=== PATIENT | female | born 1945 | race Hispanic/Latino ===

== ENCOUNTER 2018-05-24 15:45 | Outpatient (CLI) | payer MEDICARE | END 2018-05-24 15:46 | disposition home or self-care (01) | LOC: BICMAMMO 15:45 | PROVIDERS: ATTEND Internal Medicine | DX: Z12.31 Encounter for screening mammogram for malignant neoplasm of breast (principal); R92.1 Mammographic calcification found on diagnostic imaging of breast | CPT/HCPCS: 77063; 77067 ==

== ENCOUNTER 2018-12-07 13:39 | Outpatient (CLI) | payer MEDICARE ==
--- NOTE | 2018-12-07 15:26 | ULT ---
THYROID ULTRASOUND: Date: 12/07/18 HISTORY: Thyroid nodule. COMPARISON: None available. FINDINGS: The right lobe of the thyroid gland measures 2.8 cm x 1.6 cm x 1.3 cm, with the left lobe measuring 3 .7 cm x 1.3 cm x 1.1 cm. There is a small, heterogeneous nodule within the superior pole of the right lobe of the thyroid gland measuring 0.5 cm, with a few additional much smaller tiny hypoechoic nodul es also seen in the right lobe of the thyroid gland. There is a single, slightly heterogeneous, hypoe choic nodule within the superior pole of the left lobe of the thyroid gland which measures 0.4 cm in maximal dimensions. IMPRESSION: Multinodular thyroid gland with tiny nodules in each lobe of the thyroid gland, largest measuring 0.5 cm in the superior pole of the right lobe of the thyroid gland. POS: DELROY
== END 2018-12-07 13:40 | disposition home or self-care (01) ==
LOC: BICULT 13:39
PROVIDERS: ATTEND Internal Medicine Cardiovascular Disease
DX: E04.1 Nontoxic single thyroid nodule (principal); E04.2 Nontoxic multinodular goiter
CPT/HCPCS: 76536

== ENCOUNTER 2019-06-05 11:38 | Outpatient (CLI) | payer MEDICARE ==
--- NOTE | 2019-06-05 13:50 | MMO ---
Bilateral MAMMO Bilat Screen DDI+RICHARD. CLINICAL HISTORY: Patient is 73 years old and is seen for screening. The patient has no family history of breast cancer. The patient has no personal history of cancer. VIEWS: The views performed were: bilateral craniocaudal with tomosynthesis and bilateral mediolateral oblique with tomosynthesis. FILMS COMPARED: The present examination has been compared to prior imaging studies performed at [facility] on 03/23/2015, 03/29/2016, 05/16/2017 and 05/24/2018. MAMMOGRAM FINDINGS: The breasts are heterogeneously dense, which could obscure a lesion on mammography. There is an asymmetry seen in the CC view only seen in the outer region of the right breast. In the left breast, there are no suspicious masses, calcifications or areas of architectural distortion. IMPRESSION: ASYMMETRY IN THE RIGHT BREAST REQUIRES ADDITIONAL EVALUATION. RECOMMEND DIAGNOSTIC MAMMOGRAM. ULTRASOUND MAY ALSO PROVE USEFUL AT RECALL. THE RESULTS OF THIS EXAM WERE SENT TO THE PATIENT. ACR BI-RADS Category 0 - Incomplete: Need additional imaging evaluation. [facility] will notify the patient of the need for additional imaging services. MAMMOGRAPHY NOTE: 1. A negative mammogram report should not delay a biopsy if a dominant of clinically suspicious mass is present. 2. Approximately 10% to 15% of breast cancers are not detected by mammography. 3. Adenosis and dense breasts may obscure an underlying neoplasm. Reported by: ELICIA BAIRES MD Electonically Signed: [id number]
== END 2019-06-05 11:39 | disposition home or self-care (01) ==
LOC: BICMAMMO 11:38
PROVIDERS: ATTEND Internal Medicine
DX: Z12.31 Encounter for screening mammogram for malignant neoplasm of breast (principal); N64.89 Other specified disorders of breast
CPT/HCPCS: 77063; 77067

== ENCOUNTER 2019-06-12 13:47 | Outpatient (CLI) | payer MEDICARE ==
--- NOTE | 2019-06-12 14:19 | MMO ---
Left Breast MAMMO Unilat Diag DDI LT+RICHARD. CLINICAL HISTORY: Patient is 73 years old and is seen for additional evaluation requested from prior study. The patient has no family history of breast cancer. The patient has no personal history of cancer. VIEWS: The views performed were: bilateral mediolateral with tomosynthesis and left craniocaudal spot compression with tomosynthesis. FILMS COMPARED: The present examination has been compared to prior imaging studies performed at [facility] on 03/29/2016, 05/16/2017, 05/24/2018 and 06/05/2019. MAMMOGRAM FINDINGS: The breast is heterogeneously dense, which could obscure a lesion on mammography. Asymmetry in the left breast compresses out. There are no suspicious masses, suspicious calcifications, or new areas of architectural distortion. IMPRESSION: THERE IS NO MAMMOGRAPHIC EVIDENCE OF MALIGNANCY. A ROUTINE FOLLOW-UP MAMMOGRAM IN 1 YEAR IS RECOMMENDED. THE RESULTS OF THIS EXAM WERE SENT TO THE PATIENT. ACR BI-RADS Category 2 - Benign finding MAMMOGRAPHY NOTE: 1. A negative mammogram report should not delay a biopsy if a dominant of clinically suspicious mass is present. 2. Approximately 10% to 15% of breast cancers are not detected by mammography. 3. Adenosis and dense breasts may obscure an underlying neoplasm. Reported by: Rosalinda COLEMAN Electonically Signed: [id number]
== END 2019-06-12 13:48 | disposition home or self-care (01) ==
LOC: BICMAMMO 13:47
PROVIDERS: ATTEND Internal Medicine
DX: R92.2 Inconclusive mammogram (principal)
CPT/HCPCS: 77065; G0279

== ENCOUNTER 2019-08-06 10:23 | Observation (INO) | payer MEDICARE ==
[2019-08-06 11:00] LABS: #Eosinphils 0.1 thou/uL (0.0-0.7); #Lymphocytes 1.8 thou/uL (1.20-3.40); #Monocytes 0.3 thou/uL (0.11-0.59); #Neutrophils 3.5 thou/uL (1.40-6.50); %Basophils 0.2 % (0.0-1.0); %Eosinophils 2.6 % (0.0-10.0); %Lymphocytes 30.6 % (21.0-51.0); %Monocytes 5.6 % (0.0-10.0); Hemoglobin 13.6 g/dL (12.0-16.0); Mean Corpuscular Hemoglobin 30.4 pg (27.0-31.0); Mean Corpuscular Volume 86.8 fL (78.0-98.0); Mean Platelet Volume 7.6 fL (7.4-10.4); Platelet Count 110 thou/uL (130-400); RBC Distribution Width 12.2 % (11.5-14.5); Red Blood Cell (RBC) Count 4.49 mill/uL (4.20-5.40); White Blood Cell (WBC) Count 5.7 thou/uL (4.8-10.8)
[2019-08-06] MEDS ORDERED: Ondansetron PF 4 MG/2 ML Vial ONE (11:07)
[2019-08-06] MEDS ORDERED: Meclizine HCl 25 MG TAB ONE (11:09)
--- NOTE | 2019-08-06 11:17 | RAD ---
Portable chest: HISTORY: Dizziness chest pain COMPARISON: none FINDINGS: Lung la are clear. Heart and mediastinum appear unremarkable. Postop sternotomy changes . Vascularity is normal. Visualized osseous structures unremarkable. IMPRESSION: No acute finding
[2019-08-06 11:19] LABS: ALT (SGPT) 16 U/L (8-55); AST (SGOT) 15 U/L (5-34); Alkaline Phosphatase 81 U/L (40-110); Anion Gap 12 mmol/L (10-20); BUN (Urea Nitrogen) 12 mg/dL (9.8-20.1); Bilirubin, Total 0.4 mg/dL (0.2-1.2); CK (CPK) 126 U/L (29-168); Calc. Creatinine Clearance 0 mL/min (70-130); Carbon Dioxide 24 mmol/L (23-31); Chloride 110 mmol/L (98-107); Estimated GFR-MDRD 55; Globulin 2.7 g/dL (2.4-3.5); Glucose 153 mg/dL (83-110); Lipase 15 U/L (8-78); Potassium 3.6 mmol/L (3.5-5.1); Protein, Total 6.7 g/dL (6.0-8.3); Sodium 142 mmol/L (136-145)
[2019-08-06] MEDS ORDERED: Ondansetron ODT 4 MG TAB ONE (11:28)
--- NOTE | 2019-08-06 11:55 | CT ---
CT Brain WO Con: 08/06/2019 11:03 AM CLINICAL HISTORY: Chronic dizziness. COMPARISON: 01/27/2017 FINDINGS: Hemorrhage: None. Ventricular system: Normal in size and morphology for the patient's age. Cerebral parenchyma: Microvascular ischemic disease Midline shift: None. Mass: No mass effect. Calvarium: Normal. Visualized Paranasal sinuses: Clear. IMPRESSION: No acute intracranial abnormalities.
--- NOTE | 2019-08-06 12:40 | PDOC.FPRHP ---
- History of Present Illness Chief Complaint: Dizziness History of Present Illness: Ms Sykes is a 74yo female with pmh of CAD S/p X3 vessel CABG, DM II, HLD, HTN , presents from Dr Rice's office due to dizziness that prevents her from walking. Reports lightheadedness. Reports right sided chest pain with right hand numbness off and on. Has had these symptoms for 6 months but today dizziness is worse. Has been getting home health PT/OT for strengthening. Reports the reason she doesn't walk is because she is afraid she will fall. C/o headaches in the frontal region almost daily. + night sweats. + ringing in L-ear. Pt had out patient workup of Carotid Doppler US, which was negative for significant stenosis. ED Course: Pt given meclizine, symptoms improved slightly. CT head negative. - Allergies/Adverse Reactions Allergies Allergy/AdvReac Type Severity Reaction Status Date / Time No Known Allergies Allergy Verified 08/06/19 15:21 - Home Medications Medication Instructions Recorded Confirmed Type Sertraline HCl 100 mg PO DAILY 04/07/14 08/06/19 History Aspirin Chewable [Aspirin Chewable 81 mg PO DAILY #0 tab 08/20/15 08/06/19 Rx Tablet] Aspirin/Acetaminophen/Caffeine 2 tablet PO Q6HR PRN 08/24/16 08/06/19 History [Excedrin Extra Strength Caplet] Metoprolol Tartrate 50 mg PO BID 08/24/16 08/06/19 History Simvastatin [Zocor] 40 mg PO QPM tab 01/29/17 08/06/19 Rx Meloxicam 15 mg PO DAILY 08/06/19 08/06/19 History Omeprazole 40 mg PO DAILY 08/06/19 08/06/19 History glipiZIDE [Glipizide] 5 mg PO BID 08/06/19 08/06/19 History - History PMHx: HTN, DM II, HLD, CAD PSHx: CABG x3v, knee replacement, cholecystectomy, hysterectomy FHx: Unremarkable Social: Denies alcohol, tobacco and drug use. - Review of Systems General: denies: fever/chills, fatigue Eyes: denies: vision changes ENT: denies: nasal congestion, rhinorrhea Respiratory: denies: cough, shortness of breath Cardiovascular: reports: chest pain. denies: palpitation, edema Gastrointestinal: denies: nausea, vomiting Genitourinary: denies: dysuria, other (hematuria) Skin: denies: rashes, lesions Musculoskeletal: denies: pain, swelling Neurological: reports: numbness, weakness - Vital signs BP: 180/132 HR: 53 RR: 21 Tmax: 99.9 Pox: 99% on Ra Wt: 74.12 - Physical Exam Constitutional: NAD, awake, alert and oriented, well developed HEENT: normocephalic and atraumatic, PERRLA, EOMI, conjunctiva clear, no scleral icterus, grossly normal vision, TM's clear and intact (R TM erythematous , no effusion.), grossly normal hearing, MMM Neck: supple, FROM, trachea midline, no LAD Chest: no-tender to palpation, no lesions Heart: RRR, pulses present, no edema -Heart: 2/6 systolic murmur Lungs: CTAB, no respiratory distress, good air movement, no rales/rhonchi, no wheezing, no retractions Abdomen: soft, non-tender, bowel sounds present, no masses/distention Musculoskeletal: normal structure, normal tone Neurological: no focal deficit, CN II-XII intact, normal sensation -Neurological: [id number] intact no dysdiadacokinesia Anne-hallpike: horizontal nystagmus present when tested on right. Skin: no rash/lesions, good turgor, capillary refill <2 seconds Heme/Lymphatic: no unusual bruising or bleeding, no purpura, no petechia Psychiatric: normal mood and affect, good judgment and insight, intact recent and remote memory FMR H&P: Results - Labs Result Diagrams: 08/06/19 10:43 08/06/19 10:43 Lab results: WBC 5.7 thou/uL (4.8-10.8) 08/06/19 10:43 Hgb 13.6 g/dL (12.0-16.0) 08/06/19 10:43 Hct 38.9 % (36.0-47.0) 08/06/19 10:43 MCV 86.8 fL (78.0-98.0) 08/06/19 10:43 Plt Count 110 thou/uL (130-400) L 08/06/19 10:43 Neutrophils % 61.0 % (42.0-75.0) 08/06/19 10:43 Sodium 142 mmol/L (136-145) 08/06/19 10:43 Potassium 3.6 mmol/L (3.5-5.1) 08/06/19 10:43 Chloride 110 mmol/L (98-107) H 08/06/19 10:43 Carbon Dioxide 24 mmol/L (23-31) 08/06/19 10:43 BUN 12 mg/dL (9.8-20.1) 08/06/19 10:43 Creatinine 0.98 mg/dL (0.6-1.1) 08/06/19 10:43 Glucose 153 mg/dL (83-110) H 08/06/19 10:43 Calcium 9.0 mg/dL (7.8-10.44) 08/06/19 10:43 Total Bilirubin 0.4 mg/dL (0.2-1.2) 08/06/19 10:43 AST 15 U/L (5-34) 08/06/19 10:43 ALT 16 U/L (8-55) 08/06/19 10:43 Alkaline Phosphatase 81 U/L (40-110) 08/06/19 10:43 Creatine Kinase 126 U/L (29-168) 08/06/19 10:43 B-Natriuretic Peptide 141.3 pg/mL (0-100) H 08/06/19 10:43 Serum Total Protein 6.7 g/dL (6.0-8.3) 08/06/19 10:43 Albumin 4.0 g/dL (3.4-4.8) 08/06/19 10:43 Lipase 15 U/L (8-78) 08/06/19 10:43 - EKG Interpretation EKG: Bradycardia, sinus rhythm - Radiology Interpretation CT scan - head Status: report reviewed by me (no acute process.) FMR H&P: A/P - Problem List (1) CVA (cerebral vascular accident) Current Visit: Yes Status: Suspected Code(s): I63.9 - CEREBRAL INFARCTION, UNSPECIFIED (2) Vertiginous migraine Current Visit: Yes Status: Suspected Code(s): G43.109 - MIGRAINE WITH AURA, NOT INTRACTABLE, W/O STATUS MIGRAINOSUS (3) Coronary atherosclerosis Current Visit: No Status: Chronic Code(s): I25.10 - ATHSCL HEART DISEASE OF [place] CORONARY ARTERY W/O ANG PCTRS (4) Essential hypertension Current Visit: No Status: Chronic Code(s): I10 - ESSENTIAL (PRIMARY) HYPERTENSION (5) Hyperlipidemia Current Visit: No Status: Chronic Code(s): E78.5 - HYPERLIPIDEMIA, UNSPECIFIED (6) Type II diabetes mellitus Current Visit: No Status: Chronic - Plan 74 y/o f admitted to stroke obs for evaluation and treatment of her dizziness. DDx BPPV, Vertiginous Migraines, vs TIA r/o. 1. Dizziness, most likely diagnosis is Vertiginous Migraines Vs CVA - Differential dx: TIA/CVA, BPPV - HINTS suggests central lesion/insult - Ordered MRI - Restarted Depakote [address] Conroy started on prior admission, was not continued for unknown reason. - Restarted Meclizine 25 mg Q8H - Anne-Hallcarla, with positive nystagmus to the right. 2. HTN - holing metoprolol as pt is bradycardic - Hydralazine PRN for elevated BP's 3. Bradycardia - Rate in 50's - No echo since 2014. EF 55-60%. Tricuspid aortic valve. Aortic valve sclerosis. Ordered Echo. - Dr. Rice's office does not have any resent echo results 4. DM II - Pt takes Januvia and Glipizide at home - Continue Januvia, hold Glipizide due to hypoglycemia risk 5. CAD, S/P CABG X3 vessels - continue simvastatin 40 mg, ASA 81 mg daily 6. HLD - Continue simvastatin 40 mg Code Status: DNP, discussed with patient Diet: HH, CC DVT ppx: SCD's Dispo: Stable, admit to stroke obs for dizziness. FMR H&P: Upper Level - Pertinent history Ms Sykes is a 74yo female with pmh of HTN, prediabetes, HLD, CAD s/p CABG x3v presenting with dizziness. Reports dizziness over the last 6 months with sitting and movement. Worse today, was sent to ED from Dr Rice's office. She does check her BP at home and they have been stable with no hypotensive episodes per cardiology records. She was seeing her PCP over the last 6 months for these symptoms and she has underwent carotid US which was normal. In the ED she was noted to have abnormal Neuro exam- pt unable to do rapid alternating movements or heel to pascual test. There was concern for acute CVA which was why she was admitted. Head CT was normal. Imdur was stopped today by cardiology due to dizziness. Pt has hx of vertiginous migraines diagnosed on prior admission by Dr Conroy. - Pertinent findings General: NAD HEENT: Normal conjunctiva, no facial droop CV: RRR, no murmurs Respiratory: CTA b/l Abdomen: Soft, nontender Neuro: CN II-XII intact, no dysdiadochokinesis, normal heel to pascual, NIH 0. Normal sensation to light touch on all 4 extremities. bidirectional horizontal nystagmus. HINTS exam central. Normal test of skew. - Plan Date/Time: 08/06/19 1240 Acute CVA vs BPPH vs Vertiginous migraine. Concern for acute CVA due to neuro deficits on initial exam in ED however no dysdiadochokinesis and normal heel to pascual test on our repeat exam. HINTS exam central. CT in ED no acute findings. Was hospitalized in 2017 for similar symptoms, neurology was consulted and she was diagnosed with Vertiginous migraines. At this time she was discharged on Depakote. She is no longer taking this or topamax. Will perform [place]-Hallpike and if positive preform Danica maneuver for tx. Continue Meclizine. Will admit to stroke, obtain MRI, echo and monitor with neurochecks. Will also start Depakote. Atypical chest pain - Not currently in pain. Initial trop negative and EKG in clinic today and repeat in ED no ischemic changes. Is scheduled for a cardiac PET scan outpt. Recommend outpt workup with Dr Rice. HTN - Hydralazine PRN for SBP >180 - Will start Amlodipine 5mg Hx of CVA 30yrs ago with no residual deficits - Continue ASA and statin DM - Continue Januvia. ACHS accuchecks and mild SSI. For other chronic medical problems please see design engineering intern note. I, Alba Alonso, have evaluated this patient and agree with findings/plan as outlined by design engineering intern resident. Pertinent changes/additions are listed here. Addendum - Attending - Attending Attestation Date/Time: 08/07/19 1118 I personally evaluated the patient and discussed the management with the team on day of admission. I agree with the History, Examination, Assessment and Plan documented above with any addition or exceptions noted below. Persistent vestibular symptoms and intermittent headache, none currently. Of HINTS exam HI/N suggestive of central. Will proceed with MRI to eval.
[2019-08-06] MEDS ORDERED: Gadobenate Dimeglumine 529 MG/1 ML (20ML VIAL) ONE (12:52)
[2019-08-06] MEDS ORDERED: Meclizine HCl 25 MG TAB PO PRN (13:23)
[2019-08-06] MEDS ORDERED: Aspirin Chewable 81 MG TAB ONE (13:55)
[2019-08-06] MEDS ORDERED: Acetaminophen 325 MG TAB PO PRN (13:59)
[2019-08-06] MEDS ORDERED: Ondansetron ODT 4 MG TAB PO PRN (13:59)
[2019-08-06] MEDS ORDERED: hydrALAZINE 20 MG/ML VIAL SLOW IVP PRN (14:52)
[2019-08-06 15:34] VITALS: BMI 31.8
[2019-08-06] MEDS ORDERED: Amlodipine 5 MG TAB PO SCH (15:45)
[2019-08-06] MEDS ORDERED: Lorazepam 2 MG/ML VIAL SLOW IVP SCH (16:15)
--- NOTE | 2019-08-06 18:45 | MRI ---
MRI brain with and without contrast: DATE: 08/06/2019 HISTORY: 74-year-old female with dizziness. TIA. TECHNIQUE: Multiplanar, multisequence MRI of the brain obtained pre and post IV injection of gadolinium based co ntrast agent. FINDINGS: There is no obstructive hydrocephalus. There is no midline shift or any other evidence of mass effect . There is no extra-axial fluid collection. There are mild-moderate chronic ischemic white matter changes due to microvascular atherosclerosis. There is otherwise no major intra-axial signal abnormal ity, abnormal enhancement, mass, recent hemorrhage, or restricted diffusion. Tiny focus of CSF signal a few millimeters in size at the left thalamus could either represent a minimally dilated Virc how-Charles perivascular space or a tiny old lacunar infarction. IMPRESSION: 1) mild-moderate chronic ischemic white matter changes. 2) otherwise negative
[2019-08-06] MEDS ORDERED: Atorvastatin Calcium 20 MG TAB PO SCH ×2 (21:00)
[2019-08-06] MEDS ORDERED: Topiramate 25 MG TAB PO SCH (21:00)
[2019-08-06] MEDS: Divalproex Sodium 250 MG (DR) TAB PO SCH (21:44)
--- NOTE | 2019-08-07 06:03 | PDOC.FM ---
- Subjective Subjective: Denies CP, SOB. C/o dizziness, that is better than yesterday. Tele monitoring overnight: 60 NSR - Objective MAR Reviewed: Yes Vital Signs & Weight: Vital Signs (12 hours) Temp Pulse Resp BP Pulse Ox 08/07/19 03:37 97.6 F 63 16 157/81 H 95 08/06/19 23:49 97.7 F 58 L 16 150/80 H 95 08/06/19 20:50 97.7 F 58 L 16 175/85 H 95 Weight Weight 74.117 kg I&O: 08/05/19 08/06/19 08/07/19 06:59 06:59 06:59 Intake Total 240 Balance 240 Result Diagrams: 08/06/19 10:43 08/06/19 10:43 Phys Exam - Physical Examination Constitutional: NAD HEENT: PERRLA, moist MMs, sclera anicteric Horizontal nystagmus with eyes glancing to right. Neck: no nodes, supple, full ROM Respiratory: no wheezing, no rales, no rhonchi, clear to auscultation bilateral Cardiovascular: RRR, no rub Systolic murmur Gastrointestinal: soft, non-tender, no distention, positive bowel sounds Musculoskeletal: no edema, pulses present HINTS: eyes stay centrally fixed, nystagmus present. Centrally suggestive. Psychiatric: normal affect, A&O x 3 Skin: no rash, normal turgor, cap refill <2 seconds Dx/Plan (1) CVA (cerebral vascular accident) Code(s): I63.9 - CEREBRAL INFARCTION, UNSPECIFIED Status: Suspected (2) Vertiginous migraine Code(s): G43.109 - MIGRAINE WITH AURA, NOT INTRACTABLE, W/O STATUS MIGRAINOSUS Status: Suspected (3) Coronary atherosclerosis Code(s): I25.10 - ATHSCL HEART DISEASE OF [place] CORONARY ARTERY W/O ANG PCTRS Status: Chronic (4) Essential hypertension Code(s): I10 - ESSENTIAL (PRIMARY) HYPERTENSION Status: Chronic (5) Hyperlipidemia Code(s): E78.5 - HYPERLIPIDEMIA, UNSPECIFIED Status: Chronic (6) Type II diabetes mellitus Status: Chronic - Plan Plan: 74 y/o f admitted to stroke obs for evaluation and treatment of her dizziness. DDx BPPV, Vertiginous Migraines, vs TIA r/o. 1. Dizziness, most likely diagnosis is Vertiginous Migraines Vs CVA - Differential dx: TIA/CVA, BPPV - HINTS exam suggests central lesion/insult - MRI: mild-moderate ischemic white matter changes 2/2 microvascular atherosclerosis. Possible L-thalamic old lacunar infarct vs. Virchow-messi perivascular space. Otherwise negative. - Restarted Depakote [address] Conroy started on prior admission for vertiginous migraines, was not continued for unknown reason. - Restarted Meclizine 25 mg Q8H - Joss[place], with positive nystagmus to the right. - Brain CT negative. 2. HTN - holing metoprolol as pt is bradycardic - Hydralazine PRN for elevated BP's - Added Lisinopril 10 mg daily to BP regimen. 3. Bradycardia - Rate in 50's - No echo since 2014. EF 55-60%. Tricuspid aortic valve. Aortic valve sclerosis. Ordered Echo. - Dr. Rice's office does not have any resent echo results 4. DM II - Pt takes Januvia and Glipizide at home - Continue Januvia, hold Glipizide due to hypoglycemia risk - Started Mild SSI - Accuchecks. 5. CAD, S/P CABG X3 vessels - continue simvastatin 40 mg, ASA 81 mg daily - Echo pending 6. HLD - Continue simvastatin 40 mg Code Status: DNP, discussed with patient Diet: HH, CC DVT ppx: SCD's Dispo: Stable, admit to stroke obs for dizziness. Addendum - Attending - Attending Attestation Date/Time: 08/07/19 1041 I personally evaluated the patient and discussed the management with Dr. Young. I agree with the History, Examination, Assessment and Plan documented above with any addition or exceptions noted below. The patient has noticed some improvement in dizziness. Would benefit from therapy. MRI negative for acute stroke.
[2019-08-07] MEDS ORDERED: HumaLOG 300 UNITS/3 ML VIAL SC PRN (08:04)
[2019-08-07] MEDS ORDERED: Dextrose 50% Abboject 50 ML SYRINGE SLOW IVP PRN (08:04)
[2019-08-07] MEDS ORDERED: Dextrose 5% in Water 1,000 ML IV PRN (08:04)
[2019-08-07] MEDS: Divalproex Sodium 250 MG (DR) TAB PO SCH (08:58)
[2019-08-07] MEDS ORDERED: Aspirin Chewable 81 MG TAB PO SCH (09:00)
[2019-08-07] MEDS ORDERED: FLU VACC TS2019-20(65YR UP)/PF 180 MCG/0.5 ML SYRINGE IM ONE (09:00)
[2019-08-07] MEDS ORDERED: Lisinopril 10 MG TAB PO SCH (09:00)
[2019-08-07] MEDS ORDERED: Meloxicam 15 MG TAB PO SCH (09:00)
[2019-08-07] MEDS ORDERED: Amlodipine 5 MG TAB PO SCH (09:00)
[2019-08-07 15:52] VITALS: BP 172/65; TEMP 98
--- NOTE | 2019-08-07 23:57 | DIS ---
DATE OF ADMISSION: 08/06/2019 DATE OF DISCHARGE: 08/07/2019 RESIDENT: Chanel Young DO ADMITTING ATTENDING: Dr. Ching. DISCHARGE ATTENDING: Dr. Agustin CONSULTS: Case Management, OT, PT, speech eval. PROCEDURES PERFORMED: Brain MRI showed no acute process, [id number] chronic ischemic white matter changes most likely secondary to microvascular atherosclerosis. PRIMARY DIAGNOSES: 1. Dizziness, most likely caused by vertiginous migraine. 2. Coronary atherosclerosis status post x3 vessel coronary artery bypass grafting. 3. Hypertension. 4. Bradycardia. 5. Diabetes mellitus type 2. 6. Hyperlipidemia. DISCHARGE MEDICATIONS: 1. Acetaminophen 650 mg p.o. q.4 hours p.r.n. 2. 81 mg aspirin p.o. daily. 3. Depakote 250 mg p.o. b.i.d. 4. Lisinopril 10 mg p.o. daily. 5. Meclizine 25 mg p.o. q.8 hours. 6. Meloxicam 15 mg p.o. daily. 7. Omeprazole 40 mg p.o. daily. 8. Sertraline 100 mg p.o. daily. 9. Simvastatin 40 mg p.o. at bedtime. 10. Glipizide 5 mg p.o. b.i.d. 11. Hydralazine 10 mg slow IVP q.4 hours as needed for hypertension. DISCONTINUED MEDICATIONS: Metoprolol 50 mg p.o. b.i.d., because patient was having bradycardia while in the hospital. If her bradycardia resolves, consider restarting metoprolol or other beta-israel for cardiac morbidity and mortality benefit. HISTORY OF PRESENT ILLNESS/HOSPITAL COURSE: Ms. ySkes is a 74-year-old female, who came into the emergency department after being seen at Dr. Rice's office on 08/06/2019. She was very dizzy in office and unable to stand because of her dizziness. Once evaluated in the emergency department, we received the history that this has been going on anywhere from 4 to 6 months. The patient did think that she was acutely worse than what has been going on in the past several months. The patient had a negative CT brain in the emergency department with relatively normal laboratory findings. The patient was admitted to rule out acute CVA versus TIA. Brain MRI showed chronic white matter ischemic changes, most likely secondary to her atherosclerosis but no acute infarct. The patient's dizziness could be due to a couple of factors, one being vertiginous migraines, the other BPPV. I recommend inpatient rehab for this patient as she is unstable to go home currently. She is an excellent candidate for rehab as she wants to show improvement in her overall strength and stability before going home. She will also be a good candidate for Danica maneuver to be performed multiple times with PT/OT with a high differential being BPPV. The addition of Depakote 250 mg p.o. b.i.d. was restarted to the patient's regimen. On a prior admission, Dr. West had started this for vertiginous migraines, but the patient did not know why she had stopped taking medication previously. She agreed to the plan to restart this medication as well as meclizine, stated that this helps with her dizziness. DISPOSITION: The patient is stable upon discharge to inpatient rehab. DISCHARGE INSTRUCTIONS: 1. Location: [facility] inpatient re[facility]. 2. Diet: Heart healthy and consistent carb. 3. Activity: As tolerated per PT/OT. 4. Followup: Follow up with primary care in 1 week after discharge from inpatient rehab to monitor new addition of lisinopril, blood pressure medication, and whether or not to restart metoprolol if her heart rate tolerates. Job ID: [id number] MTDD
--- NOTE | 2019-08-10 14:42 | EKG ---
Test Reason : Blood Pressure : / mmHG Vent. Rate : 056 BPM Atrial Rate : 056 BPM P-R Int : 164 ms QRS Dur : 090 ms QT Int : 432 ms P-R-T Axes : 012 -07 032 degrees QTc Int : 416 ms Sinus bradycardia Moderate voltage criteria for LVH, may be normal variant Borderline ECG Confirmed by ALEXEI FLORES DO ([id number]), slot editor DIVINE MILLER ([id number]) on 08/10/2019 2:42:06 PM Referred By: Confirmed By:ALEXEI FLORES DO
== END 2019-08-07 19:35 ==
LOC: ERS 10:23 → 2SE 12:41
PROVIDERS: ADMIT Family Medicine; ATTEND Family Medicine
DX: R42 Dizziness and giddiness (principal); I25.10 Atherosclerotic heart disease of native coronary artery without angina pectoris; I10 Essential (primary) hypertension; E11.9 Type 2 diabetes mellitus without complications; E78.5 Hyperlipidemia, unspecified; R00.0 Tachycardia, unspecified; R07.89 Other chest pain; Z95.1 Presence of aortocoronary bypass graft; Z79.82 Long term (current) use of aspirin; Z79.84 Long term (current) use of oral hypoglycemic drugs; Z79.899 Other long term (current) drug therapy
CPT/HCPCS: 70450; 70553; 71045; 80053; 82550; 82962; 83690; 83880; 84484; 85025; 93005; 96374; 97139 ×3; 99285; G0378 ×3; 36415; 36416; A9577; J2060; J2405; J8597; Q0162

== ENCOUNTER 2019-12-17 09:02 | Outpatient (CLI) | payer MEDICARE ==
--- NOTE | 2019-12-17 14:13 | NM ---
WHOLE BODY BONE SCAN WITH TRIPLE PHASE IMAGING THROUGH THE KNEES: HISTORY: Right knee replacement 2014. Pain in the right knee RADIOPHARMACEUTICAL: 32.5 mCi technetium 99m-MDP injected intravenously COMPARISON: None CORRELATION: None FINDINGS: No increased flow or blood pooling is seen in either knee. Delayed images demonstrate mild tracer upt neno in the right knee. There is scattered degenerative activity in the appendicular skeleton. No other abnormal areas of tracer localization are seen in the skeleton to suggest metastatic disease . Tracer excretion through the kidneys is within normal limits. IMPRESSION: No scintigraphic evidence of right knee osteomyelitis or prosthetic loosening.
== END 2019-12-17 09:03 | disposition home or self-care (01) ==
LOC: NM 09:02
PROVIDERS: ATTEND Orthopaedic Surgery
DX: Z47.1 Aftercare following joint replacement surgery (principal); M25.561 Pain in right knee; M17.9 Osteoarthritis of knee, unspecified; Z96.651 Presence of right artificial knee joint
CPT/HCPCS: 78315; A9503

== ENCOUNTER 2020-04-06 15:51 | Inpatient (IN) | payer MEDICARE ==
[~2020-04-06 15:51] MED LIST: Iopamidol-370 76% 500 ML 1 ML ONE
--- NOTE | 2020-04-06 16:05 | CT ---
CT head noncontrast HISTORY: Left-sided weakness and facial droop. COMPARISON: 08/06/2019. FINDINGS: There is no evidence of acute intracranial hemorrhage or infarct. Mild diffuse cortical atr ophy and chronic ischemic small vessel disease. There is no mass effect or shift of midline structures. Calcifications present within the arterial st ructures of the brain base. IMPRESSION : No acute intracranial abnormalities are demonstrated. Atherosclerosis. Findings were called to Dr. Ahuja in the emergency department at 1600 hours. Code CR.
[2020-04-06] MEDS ORDERED: methylPREDNISolone Sod Succ/PF 125 MG/2 ML VIAL ONE (16:09)
[2020-04-06] MEDS ORDERED: diphenhydrAMINE 50 MG/ML VIAL ONE (16:09)
[2020-04-06] MEDS ORDERED: niCARdipine 20MG In NaCl 20 MG/200 ML BAG ONE (16:14)
--- NOTE | 2020-04-06 16:24 | CT ---
CT arteriogram neck with IV contrast and 3-D imaging CT arteriogram head with IV contrast and 3-D imaging HISTORY: Left-sided weakness. Facial droop. FINDINGS: There is normal branching great vessels at the aortic arch with arterial calcification appa rent. Good flow into each vertebral and carotid system. At the right carotid bifurcation, there is calcification and prominent plaque. Motion artifact at the level of the proximal ICA with very high-grade stenosis suspected (likely greater than 90%). Good flow into the remaining patent ICA. On the left, narrowing of the proximal internal carotid artery is suspected. It is partially obscured by motion artifact and contrast in the adjacent jugular vein. [place] of [place] is intact. Calcification at the carotid siphons. Good flow into each cerebral and ce rebellar system. No focal filling defect evident. No enhancing brain lesions. IMPRESSION : No acute vascular abnormalities are demonstrated. Atherosclerosis. Probable high-grade stenosis at each cervical internal carotid artery. There is extensive motion gonsalo fact on this exam. Please consider conventional arteriography for better detail. Findings were called to Dr. Ahuja in the emergency department at 1614 hours. Code CR.
[2020-04-06 16:47] LABS: #Eosinphils 0.1 thou/uL (0.0-0.7); #Lymphocytes 2.6 thou/uL (1.20-3.40); #Monocytes 0.4 thou/uL (0.11-0.59); %Basophils 0.6 % (0.0-1.0); %Eosinophils 1.6 % (0.0-10.0); %Lymphocytes 36.1 % (21.0-51.0); %Monocytes 5.5 % (0.0-10.0); %Neutrophils 56.2 % (42.0-75.0); Mean Corpuscular HGB CONC 34.7 g/dL (32.0-36.0); Mean Corpuscular Hemoglobin 30.7 pg (27.0-31.0); Mean Corpuscular Volume 88.4 fL (78.0-98.0); Mean Platelet Volume 8.4 fL (7.4-10.4); Platelet Count 122 thou/uL (130-400); RBC Distribution Width 12.7 % (11.5-14.5); Red Blood Cell (RBC) Count 4.56 mill/uL (4.20-5.40); White Blood Cell (WBC) Count 7.1 thou/uL (4.8-10.8)
[2020-04-06 16:55] LABS: PTT 38.7 sec (22.9-36.1); Prothrombin Time 13.3 sec (12.0-14.7)
--- NOTE | 2020-04-06 17:06 | RAD ---
PORTABLE CHEST ONE VIEW: Date: 04-06-2020 Time: 4:08 p.m. History: CVA Comparison: 11-25-18 FINDINGS: There is continued elevation of the right hemidiaphragm. Changes of median sternotomy again seen. The heart size is normal. The aorta is tortuous. The lungs are well expanded without focal areas of cons olidation, pneumothoraces, hazel pulmonary edema or pleural effusions. IMPRESSION: No radiographic evidence of acute cardiopulmonary process. POS: [facility]
[2020-04-06 17:07] LABS: ALT (SGPT) 11 U/L (8-55); AST (SGOT) 15 U/L (5-34); Albumin 3.8 g/dL (3.4-4.8); Alkaline Phosphatase 77 U/L (40-110); Anion Gap 11 mmol/L (10-20); BUN (Urea Nitrogen) 20 mg/dL (9.8-20.1); Bilirubin, Total 0.4 mg/dL (0.2-1.2); Calc. Creatinine Clearance 0 mL/min (70-130); Calcium 9.1 mg/dL (7.8-10.44); Carbon Dioxide 22 mmol/L (23-31); Chloride 107 mmol/L (98-107); Estimated GFR-MDRD 53; Globulin 3.1 g/dL (2.4-3.5); Glucose 119 mg/dL (83-110); Lipase 27 U/L (8-78); Magnesium 1.9 mg/dL (1.6-2.6); Potassium 3.4 mmol/L (3.5-5.1); Protein, Total 6.9 g/dL (6.0-8.3); Sodium 137 mmol/L (136-145)
[2020-04-06 17:25] LABS: Bilirubin Negative (Negative); Blood, Urine Negative (Negative); Clarity Clear (Clear); Glucose, Urine (Dipstick) Normal (Negative); Leukocyte Negative Leu/uL (Negative); Nitrite Negative (Negative); Protein, Urine (Dipstick) Negative (Neg-Trace); Urobilinogen Normal mg/dL (Less than 2)
[2020-04-06] MEDS ORDERED: Bisacodyl 5 MG TAB PO PRN (18:18)
[2020-04-06] MEDS ORDERED: Acetaminophen 650 MG Suppository PR PRN (18:18)
[2020-04-06] MEDS ORDERED: niCARdipine 25 MG in Sodium Chloride 0.9% 250 ML 240 ML IVPB PRN (18:18)
[2020-04-06] MEDS ORDERED: Ondansetron PF 4 MG/2 ML Vial IVP PRN (18:18)
[2020-04-06 18:28] VITALS: BMI 30.9
[2020-04-06] MEDS ORDERED: Dextrose 50% Abboject 50 ML SYRINGE SLOW IVP PRN (18:35)
[2020-04-06] MEDS ORDERED: HumaLOG 300 UNITS/3 ML VIAL SC PRN (18:35)
[2020-04-06] MEDS ORDERED: Dextrose 5% in Water 1,000 ML IV PRN (18:35)
[2020-04-06] MEDS ORDERED: Potassium Chloride 10 MEQ/100 ML PREMIX BAG IVPB SCH (19:00)
--- NOTE | 2020-04-06 19:04 | HP ---
PRIMARY CARE PROVIDER: Dr. Ted Amos. CHIEF COMPLAINT: Weakness. HISTORY OF PRESENT ILLNESS: Ms. Sykes is a pleasant 74-year-old lady, who was seen at [facility] on April 06, 2020. She reported that today afternoon she developed left upper extremity and left lower extremity weakness. She reports prior stroke about 10 years ago. She denies any slurred speech. She denies any sensory symptoms. She denies any headache. She denies any nausea or vomiting. She denies any visual symptoms. She denies any recent trauma. She told the emergency room physician that she had a history of a brain mass in the past, but her MRI was normal in 2014. She presented to the emergency room with above symptoms. She was diagnosed with ischemic CVA and was administered tPA. Hospitalist Service has been consulted for admission to the critical care unit. REVIEW OF SYSTEMS: All systems were reviewed and found to be negative except for the pertinent positives mentioned above. PAST MEDICAL HISTORY: Gastroesophageal reflux disease, dyslipidemia, migraine, hypertension, ischemic cerebrovascular accident. SURGICAL HISTORY: Cholecystectomy, cataract surgery, coronary artery bypass graft surgery x2, hysterectomy. PSYCHIATRIC HISTORY: Anxiety and depression. SOCIAL HISTORY: The patient lives at home alone. She denies tobacco use, alcohol use, or recreational drug use. CODE STATUS: I discussed her code status. She is full code. FAMILY HISTORY: She denies any family history of premature coronary artery disease. ALLERGIES: NO KNOWN DRUG ALLERGIES. CURRENT MEDICATIONS: 1. Trazodone 50 mg at bedtime. 2. Lisinopril 20 mg two times a day. 3. Simvastatin 40 mg daily. 4. Aspirin 81 mg daily. 5. Glipizide 5 mg two times a day. 6. Meloxicam 15 mg daily. 7. Sertraline 100 mg daily. 8. Metoprolol tartrate 50 mg two times a day. 9. Januvia 50 mg daily. 10. Omeprazole 20 mg daily. 11. Tradjenta 5 mg daily. 12. Vitamin D 1000 units daily. 13. Imodium p.r.n. PHYSICAL EXAMINATION: GENERAL: Ms. Sykes is awake and alert, not in acute distress. VITAL SIGNS: Blood pressure is 166/77, pulse 78, respiratory rate 18, and oxygen saturation 98% on room air. She is afebrile. EYES: No scleral icterus, no conjunctival pallor. ENT: Moist mucosal membranes. No oropharyngeal erythema or exudates. NECK: Supple, nontender, trachea is midline. RESPIRATORY: Accessory muscles of breathing are not active. Chest wall movements are symmetric bilaterally. Lungs are clear to auscultation without wheeze, rhonchi, or crepitations. CARDIOVASCULAR: S1 and S2 are heard, regular. Peripheral pulses palpable. ABDOMEN: Soft, nontender, bowel sounds are heard. NEUROLOGIC: She has left facial droop. Power is 3+/5 in the left upper and lower extremities, 5/5 on the right side. Deep tendon reflexes are 2+, plantars downgoing bilaterally. MUSCULOSKELETAL: Power in the 4 extremities as described above. SKIN: No rashes. LYMPHATIC: No cervical lymphadenopathy. PSYCHIATRIC: Normal mood, normal affect, the patient is oriented to person, place, and time. LABORATORY DATA: Ms. Sykes's labs and investigations were reviewed. I reviewed her chest x-ray, which does not show any pulmonary infiltrates. I also reviewed her electrocardiogram, which shows normal sinus rhythm, no ST changes to suggest an acute coronary syndrome. She had noncontrast CT scan of the brain, which did not show any acute intracranial abnormality. CT angiogram of [place] of [place] and neck did not show any acute vascular abnormalities. She has an unremarkable CBC, INR 1.0, normal sodium, potassium decreased at 3.4, normal creatinine, normal LFTs, normal lipase, normal troponin-I, and normal urinalysis. ASSESSMENT AND PLAN: Ms. Sykes is a pleasant 74-year-old lady, who was seen at [facility] on April 06, 2020. Her problem list includes: 1. Acute ischemic cerebrovascular accident: Ms. Sykes is presenting with acute ischemic cerebrovascular accident. She has received tPA. She will be admitted to the Critical Care Unit for further management. I will continue her on aspirin. Neurology Service will be consulted for opinion and help with management. She will be on IV hydralazine p.r.n. and Cardene drip. I will obtain repeat CT scan of the brain and MRI tomorrow. 2D echocardiogram will also be ordered. 2. Diabetes mellitus type 2: I will start her on Accu-Cheks and insulin sliding scale. 3. Hypertension: For now, I will continue her on IV hydralazine and Cardene drip. 4. Dyslipidemia: She can be started on statin when she is able to take oral medications. 5. Hypokalemia: We will replace potassium. 6. Gastroesophageal reflux disease: IV pantoprazole for now, transition to oral medications when she is able to take oral medications. Many thanks for allowing me to participate in your patient's care. Please feel free to contact me with any questions or concerns. LEVEL OF RISK: High. LEVEL OF COMPLEXITY: High. Job ID: [id number]
[2020-04-06] MEDS: Acetaminophen 325 MG TAB PO PRN (20:03)
[2020-04-06] MEDS: hydrALAZINE 20 MG/ML VIAL SLOW IVP PRN (20:03)
[2020-04-06] MEDS: Communication Order-Pharmacy FS SCH (21:28)
[2020-04-07] MEDS: hydrALAZINE 20 MG/ML VIAL SLOW IVP PRN ×3 (08:21→23:40)
[2020-04-07] MEDS: Pantoprazole 40 MG VIAL IVP SCH (08:28)
[2020-04-07] MEDS ORDERED: Prevnar 13-Val Conj/PF 0.5 ML SYRINGE IM ONE (09:00)
[2020-04-07] MEDS: Labetalol HCl 100 MG/20 ML VIAL SLOW IVP PRN ×3 (13:26→23:02)
[2020-04-07] MEDS: Communication Order-Pharmacy FS SCH (13:31)
--- NOTE | 2020-04-07 13:41 | CON ---
NEUROLOGY CONSULTATION DATE OF CONSULTATION: 04/07/2020 REASON FOR CONSULTATION: CVA. HISTORY OF PRESENT ILLNESS: Ms. Sykes is a 74-year-old female, who presented to the [facility] on April 06, 2020, with acute-onset left upper extremity and lower extremity weakness. Per patient, yesterday afternoon she developed left upper and lower extremity weakness. She does have history of prior stroke 10 days ago. The patient denies slurred speech, dysphagia, nausea, vomiting, dizziness, vertigo, chest pain, headache, loss of consciousness, or abnormal involuntary movements associated with the episode. She does describe persistent tingling and paresthesias in the left upper and lower extremities. The patient denies any recent illness or trauma. In the emergency room, head CT was done, which was negative for acute intracranial pathology, and she was administered tPA and transferred to CCU for further care. REVIEW OF SYSTEMS: All other systems were reviewed and were negative except for the pertinent positives and negatives mentioned in the HPI. PAST MEDICAL HISTORY: Gastroesophageal reflux disease, dyslipidemia, migraines, prior CVA, hypertension. PAST SURGICAL HISTORY: Coronary artery bypass surgeries x2, hysterectomy, cholecystectomy, cataract surgery. PSYCHIATRIC HISTORY: Anxiety and depression. SOCIAL HISTORY: The patient lives alone in home. She is independent. She denies smoking, alcohol, or illegal drug use. FAMILY HISTORY: The patient denies family history of coronary artery disease. ALLERGIES: NO KNOWN DRUG ALLERGIES. HOME MEDICATIONS: 1. Trazodone 50 mg at bedtime. 2. Simvastatin 40 mg daily. 3. Lisinopril 20 mg twice daily. 4. Glipizide 5 mg two times a day. 5. Meloxicam 15 mg daily. 6. Sertraline 100 mg daily. 7. Metoprolol tartrate 50 mg twice daily. 8. Januvia 50 mg daily. 9. Omeprazole 20 mg daily. 10. Tradjenta 5 mg daily. 11. Vitamin D 1000 units daily. 12. Imodium p.r.n. PHYSICAL EXAMINATION: VITAL SIGNS: Blood pressure 160/70, pulse 80, respiratory rate 18. GENERAL: Awake and alert female, in no acute distress. CVS: Regular rate and rhythm. CHEST: Clear. ABDOMEN: Soft. NEUROLOGIC: Mental status, the patient is alert and oriented to person, place, and time. Speech is clear. Cranial nerves 2 through 12 are intact except 7, left facial droop. Strength 5/5 in the right upper and lower extremities, 3+/5 in the left upper and lower extremities. Sensory, decreased sensation to all sensory modalities in the left upper and lower extremities, intact on the right upper and lower extremities. Reflexes symmetric bilaterally. Cerebellar; unable to perform on the left secondary to weakness, intact on the right. Gait deferred due to the patient's safety reasons. DATA REVIEWED: I reviewed the chest x-ray, which did not reveal any pulmonary infiltrates. EKG showed normal sinus rhythm. Noncontrast head CT reviewed, which did not reveal any acute intracranial pathology. CT angiogram of the [place] of [place] and neck did not show any acute vascular abnormalities. Labs were essentially unremarkable except for hypokalemia of 3.4. ASSESSMENT AND PLAN: Ms. Sykes is a 74-year-old female, who was seen at the [facility] for acute-onset left upper extremity weakness and paresthesias , status post tPA, doing clinically well. She does have risk factors of a stroke. Neuro checks every 2 hours. Consider stat noncontrast head CT if the condition worsens. Repeat head CT in 24 hours post tPA. Recommend MRI of the brain to rule out acute intracranial process. Restart aspirin if head CT post 24 hours tPA is negative for bleed. N.p.o. until cleared by Speech. Check lipid profile, TSH, and hemoglobin A1c. Strict control of blood glucose. Permissive blood pressure control at this time. Recommend starting high-intensity statins once the patient is cleared by Speech. Correct metabolic abnormalities. 2D echo to rule out cardioembolic source. Telemetry to rule out arrhythmias. Continue home medications. Continue medical management per Primary Team. We will continue to follow. Thank you for the consult. Job ID: [id number] [facility]
--- NOTE | 2020-04-07 15:23 | PDOC.HOSPP ---
- Subjective Encounter Date: 04/07/20 Encounter Time: 09:00 Subjective: Pt seen for followup re: ischemic CVA. c/o L weakness, but improving. - Objective Vital Signs & Weight: Vital Signs (12 hours) Temp Pulse BP Pulse Ox 04/07/20 13:26 75 185/84 H 04/07/20 11:00 97.9 F 04/07/20 08:21 75 185/84 H 04/07/20 07:57 97 04/07/20 07:28 97 04/07/20 07:00 97.7 F 04/07/20 04:00 97.6 F Weight Admit Weight 158 lb 4.8 oz Weight 158 lb 4.8 oz Most Recent Monitor Data Heart Rate from ECG 75 NIBP 186/80 NIBP BP-Mean 115 Respiration from ECG 16 SpO2 96 I&O: 04/06/20 04/07/20 04/08/20 06:59 06:59 06:59 Intake Total 506 480 Output Total 750 Balance -244 480 Result Diagrams: 04/06/20 16:37 04/06/20 16:36 Additional Labs: Accuchecks 04/07/20 04/07/20 04/06/20 12:08 06:38 15:58 POC Glucose 137 H 163 H 128 H Labs and MARs reviewed by me EKG Reviewed by me: Yes (Tele: NSR) Hospitalist ROS - Review of Systems Constitutional: reports: weakness. denies: fever, chills, sweats, malaise Cardiovascular: denies: chest pain, palpitations, orthopnea, paroxysmal noc. dyspnea, edema, light headedness Gastrointestinal: denies: nausea, vomiting, abdominal pain, diarrhea, constipation, melena, hematochezia Genitourinary: denies: dysuria, frequency, incontinence, hematuria, retention Musculoskeletal: denies: neck pain, shoulder pain, arm pain, back pain, hand pain, leg pain, foot pain Neurological: reports: weakness. denies: numbness, incoordination, change in speech, confusion, seizures - Medication Medications: Active Medications Generic Name Dose Route Start Last Admin Trade Name Freq PRN Reason Stop Dose Admin Acetaminophen 650 mg 04/06/20 18:18 04/06/20 20:03 Tylenol PO 650 mg Q4H PRN Administration Headache/Fever/Mild Pain (1-3) Hydralazine HCl 10 mg 04/06/20 18:18 04/07/20 08:21 Apresoline SLOW IVP 10 mg Q4H PRN Administration SBP > 180 or DBP > 105 Labetalol HCl 10 mg 04/06/20 18:18 04/07/20 13:26 Normodyne SLOW IVP 10 mg Q10MIN PRN Administration SBP > 180 or DBP > 105 Miscellaneous Information 1 each 04/06/20 18:18 04/07/20 13:31 Communication Order-Pharmacy FS 04/08/20 18:19 Not Given NOW TANNER Pantoprazole Sodium 40 mg 04/07/20 09:00 04/07/20 08:28 Protonix IVP 40 mg DAILY TANNER Administration Sodium Chloride 10 ml 04/06/20 21:00 04/07/20 08:28 Flush - Normal Saline IVF 10 ml Q12HR TANNER Administration - Exam General Appearance: awake alert Eye: anicteric sclera ENT: moist mucosa Neck: supple, symmetric, no thyromegaly, no lymphadenopathy Heart: RRR, no gallops, no rubs, normal peripheral pulses Respiratory: CTAB, no wheezes, no rales, no ronchi Gastrointestinal: soft, non-tender, non-distended, normal bowel sounds Neurological - other findings: L facial droop; L hemiplegia Psychiatric: normal affect, normal behavior, oriented to person, oriented to place Hosp A/P (1) CVA (cerebral vascular accident) Code(s): I63.9 - CEREBRAL INFARCTION, UNSPECIFIED Status: Acute (2) Essential hypertension Code(s): I10 - ESSENTIAL (PRIMARY) HYPERTENSION Status: Chronic (3) Hyperlipidemia Code(s): E78.5 - HYPERLIPIDEMIA, UNSPECIFIED Status: Chronic (4) Type II diabetes mellitus Status: Chronic - Plan s/p tPA Continue statin Continue Protonix Neurology following.
[2020-04-07] MEDS: glipiZIDE 5 MG TAB PO SCH (17:04)
--- NOTE | 2020-04-07 19:04 | CT ---
CT OF THE BRAIN WITHOUT CONTRAST: 04/07/20 HISTORY: TPA follow-up. COMPARISON: CT brain prior day. FINDINGS: Mild periventricular chronic white matter changes. No acute hemorrhage or infarct. No midline shift. No mass effect. The calvarium is intact. The paranasal sinuses and mastoids are clear. IMPRESSION: No acute intracranial abnormality. POS: HOME
[2020-04-07] MEDS: Atorvastatin Calcium 20 MG TAB PO SCH (20:18)
[2020-04-07] MEDS: Lisinopril 20 MG TAB PO SCH (20:18)
[2020-04-07] MEDS: Acetaminophen 325 MG TAB PO PRN (22:58)
[2020-04-08] MEDS: Labetalol HCl 100 MG/20 ML VIAL SLOW IVP PRN ×2 (00:07→11:49)
--- NOTE | 2020-04-08 02:26 | CON ---
DATE OF CONSULTATION: 04/07/2020 HISTORY OF PRESENT ILLNESS: Ms. Sykes is a 74-year-old female, who presented with difficulty speech and left-sided weakness. She received tPA. Her strength and her speech are improving. She was seen by a hospital neurologist earlier today. A head CT was done this evening, which showed no brain abnormality. She had a CT done yesterday as well. She reportedly had a stroke 10 days ago. PAST MEDICAL HISTORY: Remarkable for: 1. Reflux disease, lipid disorder, vascular headaches, hypertension, cholecystectomy, cataract surgery, coronary artery bypass grafting on two occasions, and hysterectomy. History of anxiety and depression. Has a history of admission in fall of 2019 for dizziness. This reportedly prevented her from walking. 2. History of knee replacement. SOCIAL HISTORY: She is a nonsmoker and nondrinker. FAMILY HISTORY: Negative for lung disease in early age. REVIEW OF SYSTEMS: 10-point review of systems otherwise negative. PHYSICAL EXAMINATION: VITAL SIGNS: Heart rate in the 70s, respiratory rates in the 20s, oximetry is 95, and blood pressure 180/89 at 5 o'clock. HEENT: Pupils are reactive. Sclerae are anicteric. NECK: Supple. LUNGS: Clear. HEART: Regular rhythm. S1, S2 are normal. ABDOMEN: Soft and nontender. EXTREMITIES: Without edema. LABORATORY DATA: White count 7.1, hemoglobin 14.0, and platelets 122. Electrolytes are unremarkable. IMPRESSION: ?Cerebrovascular accident with two unremarkable CTs. I would think that the second CVA would have showed thrombosis if she had had a stroke, but perhaps with tPA, she did not. An MRI has been ordered. She is stable as far as protecting her airway. She has no respiratory distress at this time. TIME SPENT: Thirty-minute consult, 50% of the time was spent on the unit coordinating care. This is a 50 min consult with greater than 50% of the time spent on unit with coordination of care. Job ID: [id number] [facility]
[2020-04-08 04:32] LABS: #Lymphocytes 1.9 thou/uL (1.20-3.40); #Monocytes 0.5 thou/uL (0.11-0.59); #Neutrophils 9.3 thou/uL (1.40-6.50); %Basophils 0.3 % (0.0-1.0); %Eosinophils 0.2 % (0.0-10.0); %Lymphocytes 16.4 % (21.0-51.0); %Monocytes 4.1 % (0.0-10.0); %Neutrophils 79.1 % (42.0-75.0); Hemoglobin 14.4 g/dL (12.0-16.0); Mean Corpuscular HGB CONC 34.6 g/dL (32.0-36.0); Mean Corpuscular Hemoglobin 31.1 pg (27.0-31.0); Mean Corpuscular Volume 89.8 fL (78.0-98.0); Mean Platelet Volume 8.1 fL (7.4-10.4); Platelet Count 134 thou/uL (130-400); Red Blood Cell (RBC) Count 4.63 mill/uL (4.20-5.40); White Blood Cell (WBC) Count 11.8 thou/uL (4.8-10.8)
[2020-04-08 04:56] LABS: Anion Gap 10 mmol/L (10-20); BUN (Urea Nitrogen) 16 mg/dL (9.8-20.1); Calc. Creatinine Clearance 66 mL/min (70-130); Calcium 9.2 mg/dL (7.8-10.44); Carbon Dioxide 24 mmol/L (23-31); Cardiac Risk 3.8 (Less than 4.5); Chloride 107 mmol/L (98-107); Cholesterol 127 mg/dl (< 200 Desired); Estimated GFR-MDRD 68; Glucose 192 mg/dL (83-110); HDL Cholesterol 33 mg/dL (>60 Neg Risk); LDL Cholesterol, Calculated 66 mg/dL; Potassium 3.3 mmol/L (3.5-5.1); Sodium 138 mmol/L (136-145); Triglycerides 140 mg/dL (Less than 150)
[2020-04-08] MEDS ORDERED: Lorazepam 0.5 MG TAB PO SCH (08:30)
[2020-04-08] MEDS: Aspirin 325 MG TAB PO SCH (08:51)
[2020-04-08] MEDS: glipiZIDE 5 MG TAB PO SCH ×2 (08:51→17:36)
[2020-04-08] MEDS: Lisinopril 20 MG TAB PO SCH ×2 (08:52→20:11)
[2020-04-08] MEDS: Alogliptin 6.25 MG TAB PO SCH (08:53)
[2020-04-08] MEDS: Pantoprazole 40 MG VIAL IVP SCH (08:54)
[2020-04-08] MEDS ORDERED: Metoprolol Tartrate 50 MG TAB PO SCH (09:00)
[2020-04-08] MEDS ORDERED: Aspirin 300 MG Suppository PR SCH (09:00)
--- NOTE | 2020-04-08 10:41 | MRI ---
MRI BRAIN NONCONTRAST: DATE: 04/08/2020 HISTORY: 74-year-old female with TIA. Left-sided weakness. FINDINGS: There is no obstructive hydrocephalus. There is no midline shift or any other evidence of mass effect . There is no extra-axial fluid collection. There is a mild-moderate degree of T2-hyperintensities in the cerebral white matter consistent with chronic ischemic white matter changes due to microvascul ar atherosclerosis. Diffuse brain parenchymal volume loss. There is no evidence of recent hemorrhage or restricted diffusion. IMPRESSION: 1) mild-moderate chronic ischemic white matter changes, and diffuse involutional changes, not unusual for patient's age.. 2) otherwise negative
[2020-04-08] MEDS: hydrALAZINE 20 MG/ML VIAL SLOW IVP PRN (12:53)
--- NOTE | 2020-04-08 13:10 | PDOC.HOSPP ---
- Subjective Encounter Date: 04/08/20 Encounter Time: 07:20 Subjective: Pt seen for followup re: CVA. Has L sided weakness. - Objective Vital Signs & Weight: Vital Signs (12 hours) Temp Pulse Resp BP BP Pulse Ox 04/08/20 12:53 184/78 H 04/08/20 11:57 182/82 H 04/08/20 11:49 218/81 H 04/08/20 11:42 97.9 F 65 20 97 04/08/20 08:54 96 04/08/20 08:52 182/81 H 04/08/20 07:29 98.2 F 88 18 182/81 H 96 04/08/20 04:49 98.1 F 96 18 149/87 H 97 Weight Admit Weight 158 lb 4.8 oz Weight 158 lb 4.8 oz Most Recent Monitor Data Heart Rate from ECG 83 NIBP 152/76 NIBP BP-Mean 101 Respiration from ECG 16 SpO2 96 I&O: 04/07/20 04/08/20 04/09/20 06:59 06:59 06:59 Intake Total 506 1030 0 Output Total 750 700 Balance -244 330 0 Result Diagrams: 04/08/20 04:15 04/08/20 04:15 Additional Labs: Accuchecks 04/08/20 04/08/20 04/07/20 10:48 05:38 22:07 POC Glucose 108 143 H 139 H 04/07/20 17:07 POC Glucose 154 H Labs and MARs reviewed by me EKG Reviewed by me: Yes (Tele: NSR) Hospitalist ROS - Review of Systems Constitutional: reports: weakness Cardiovascular: denies: chest pain, palpitations, orthopnea, paroxysmal noc. dyspnea, edema, light headedness Neurological: reports: weakness. denies: numbness, incoordination, change in speech, confusion, seizures - Medication Medications: Active Medications Generic Name Dose Route Start Last Admin Trade Name Freq PRN Reason Stop Dose Admin Acetaminophen 650 mg 04/06/20 18:18 04/07/20 22:58 Tylenol PO 650 mg Q4H PRN Administration Headache/Fever/Mild Pain (1-3) Alogliptin Benzoate 12.5 mg 04/08/20 09:00 04/08/20 08:53 Alogliptin PO 12.5 mg DAILY TANNER Administration Aspirin 325 mg 04/08/20 09:00 04/08/20 08:51 Aspirin PO 325 mg DAILY [facility] Administration Atorvastatin Calcium 20 mg 04/07/20 21:00 04/07/20 20:18 Lipitor PO 20 mg HS TANNER Administration Cholecalciferol 1,000 units 04/08/20 09:00 04/08/20 08:51 Vitamin D3 PO 1,000 units DAILY [facility]NER Administration Glipizide 5 mg 04/07/20 16:30 04/08/20 08:51 Glucotrol PO 5 mg BID-AC TANNER Administration Hydralazine HCl 10 mg 04/06/20 18:18 04/08/20 12:53 Apresoline SLOW IVP 10 mg Q4H PRN Administration SBP > 180 or DBP > 105 Labetalol HCl 10 mg 04/06/20 18:18 04/08/20 11:49 Normodyne SLOW IVP 10 mg Q10MIN PRN Administration SBP > 180 or DBP > 105 Lisinopril 20 mg 04/07/20 21:00 04/08/20 08:52 Zestril PO 20 mg BID [facility] Administration Lorazepam 0.5 mg 04/08/20 08:30 04/08/20 08:51 Ativan PO 0.5 mg WILLCALL [facility] Administration Metoprolol Tartrate 50 mg 04/08/20 09:00 04/08/20 08:53 Lopressor PO 50 mg DAILY [facility] Administration Miscellaneous Information 1 each 04/06/20 18:18 04/07/20 13:31 Communication Order-Pharmacy 04/08/20 18:19 Not Given NOW [facility] Ondansetron HCl 4 mg 04/06/20 18:18 04/07/20 22:58 Zofran IVP 4 mg Q6H PRN Administration Nausea/Vomiting Pantoprazole Sodium 40 mg 04/07/20 09:00 04/08/20 08:54 Protonix IVP 40 mg DAILY [facility] Administration Sertraline HCl 100 mg 04/08/20 09:00 04/08/20 08:52 Zoloft PO 100 mg DAILY [facility] Administration Sodium Chloride 10 ml 04/06/20 21:00 04/08/20 08:54 Flush - Normal Saline IVF 10 ml Q12HR TANNER Administration - Exam General Appearance: awake alert General - other findings: Obese Eye: anicteric sclera ENT: normocephalic atraumatic Neck: supple, no JVD Heart: RRR, no rubs Respiratory: CTAB Gastrointestinal: soft, non-tender Extremities: no clubbing Psychiatric: normal affect, normal behavior Hosp A/P (1) CVA (cerebral vascular accident) Code(s): I63.9 - CEREBRAL INFARCTION, UNSPECIFIED Status: Acute (2) Essential hypertension Code(s): I10 - ESSENTIAL (PRIMARY) HYPERTENSION Status: Chronic (3) Hyperlipidemia Code(s): E78.5 - HYPERLIPIDEMIA, UNSPECIFIED Status: Chronic (4) Type II diabetes mellitus Status: Chronic - Plan PT/OT, out of bed/ambulate s/p tPA two days ago Transfered to stroke floor Continue aspirin and statin Continue Protonix Neurology following. Blood sugars reasonably controlled. Change metoprolol to 50 mg BID, continue PRN IV hydralazine.
[2020-04-08] MEDS ORDERED: Potassium Chloride 20 MEQ TAB PO SCH (13:15)
--- NOTE | 2020-04-08 14:27 | PDOC.HOSPP ---
- Subjective Encounter Date: 04/08/20 Subjective: NEUROLOGY PROGRESS NOTE Patient awake but somnolent after receiving ativan before MRI Brain. - Objective Vital Signs & Weight: Vital Signs (12 hours) Temp Pulse Pulse Pulse Pulse Resp BP 04/08/20 14:01 04/08/20 12:53 184/78 H 04/08/20 11:57 182/82 H 04/08/20 11:49 218/81 H 04/08/20 11:42 97.9 F 65 20 04/08/20 11:25 65 66 64 04/08/20 08:54 04/08/20 08:52 182/81 H 04/08/20 07:29 98.2 F 88 18 04/08/20 04:49 98.1 F 96 18 BP BP BP BP BP Pulse Ox 04/08/20 14:01 164/70 H 04/08/20 12:53 04/08/20 11:57 04/08/20 11:49 04/08/20 11:42 97 04/08/20 11:25 165/80 H 218/86 H 215/120 H 04/08/20 08:54 96 04/08/20 08:52 04/08/20 07:29 182/81 H 96 04/08/20 04:49 149/87 H 97 Weight Admit Weight 158 lb 4.8 oz Weight 158 lb 4.8 oz Most Recent Monitor Data Heart Rate from ECG 83 NIBP 152/76 NIBP BP-Mean 101 Respiration from ECG 16 SpO2 96 I&O: 04/07/20 04/08/20 04/09/20 06:59 06:59 06:59 Intake Total 506 1030 0 Output Total 750 700 Balance -244 330 0 Result Diagrams: 04/08/20 04:15 04/08/20 04:15 Additional Labs: Accuchecks 04/08/20 04/08/20 04/07/20 10:48 05:38 22:07 POC Glucose 108 143 H 139 H 04/07/20 17:07 POC Glucose 154 H Radiology Reviewed by me: Yes EKG Reviewed by me: Yes Hospitalist ROS - Review of Systems Constitutional: denies: fever, chills, sweats, weakness, malaise, other Eyes: denies: pain, vision change, conjunctivae inflammation, eyelid inflammation, redness, other ENT: denies: ear pain, ear discharge, nose pain, nose discharge, nose congestion , mouth pain, mouth swelling, throat pain, throat swelling, other Respiratory: denies: cough, dry, shortness of breath, hemoptysis, SOB with excertion, pleuritic pain, sputum, wheezing, other Cardiovascular: denies: chest pain, palpitations, orthopnea, paroxysmal noc. dyspnea, edema, light headedness, other Gastrointestinal: denies: nausea, vomiting, abdominal pain, diarrhea, constipation, melena, hematochezia, other Genitourinary: denies: dysuria, frequency, incontinence, hematuria, retention, other Neurological: reports: weakness, change in speech. denies: numbness, incoordination, confusion, seizures, other - Medication Medications: Active Medications Generic Name Dose Route Start Last Admin Trade Name Freq PRN Reason Stop Dose Admin Acetaminophen 650 mg 04/06/20 18:18 04/07/20 22:58 Tylenol PO 650 mg Q4H PRN Administration Headache/Fever/Mild Pain (1-3) Alogliptin Benzoate 12.5 mg 04/08/20 09:00 04/08/20 08:53 Alogliptin PO 12.5 mg DAILY TANNER Administration Aspirin 325 mg 04/08/20 09:00 04/08/20 08:51 Aspirin PO 325 mg DAILY TANNER Administration Atorvastatin Calcium 20 mg 04/07/20 21:00 04/07/20 20:18 Lipitor PO 20 mg HS TANNER Administration Cholecalciferol 1,000 units 04/08/20 09:00 04/08/20 08:51 Vitamin D3 PO 1,000 units DAILY TANNER Administration Glipizide 5 mg 04/07/20 16:30 04/08/20 08:51 Glucotrol PO 5 mg BID-AC TANNER Administration Hydralazine HCl 10 mg 04/06/20 18:18 04/08/20 12:53 Apresoline SLOW IVP 10 mg Q4H PRN Administration SBP > 180 or DBP > 105 Labetalol HCl 10 mg 04/06/20 18:18 04/08/20 11:49 Normodyne SLOW IVP 10 mg Q10MIN PRN Administration SBP > 180 or DBP > 105 Lisinopril 20 mg 04/07/20 21:00 04/08/20 08:52 Zestril PO 20 mg BID TANNER Administration Lorazepam 0.5 mg 04/08/20 08:30 04/08/20 08:51 Ativan PO 0.5 mg WILLCALL TANNER Administration Miscellaneous Information 1 each 04/06/20 18:18 04/07/20 13:31 Communication Order-Pharmacy FS 04/08/20 18:19 Not Given NOW TANNER Ondansetron HCl 4 mg 04/06/20 18:18 04/07/20 22:58 Zofran IVP 4 mg Q6H PRN Administration Nausea/Vomiting Pantoprazole Sodium 40 mg 04/07/20 09:00 04/08/20 08:54 Protonix IVP 40 mg DAILY TANNER Administration Potassium Chloride 40 meq 04/08/20 13:15 04/08/20 13:57 K-Dur PO 04/08/20 15:15 40 meq NOW TANNER Administration Sertraline HCl 100 mg 04/08/20 09:00 04/08/20 08:52 Zoloft PO 100 mg DAILY TANNER Administration Sodium Chloride 10 ml 04/06/20 21:00 04/08/20 08:54 Flush - Normal Saline IVF 10 ml Q12HR TANNER Administration - Exam General Appearance: awake alert Eye: PERRL ENT: normocephalic atraumatic Neck: supple Heart: RRR Respiratory: CTAB Gastrointestinal: soft Extremities: no cyanosis, no clubbing, no edema Skin: normal turgor, no lesions, no rashes Neurological: cranial nerve grossly intact, normal sensation to touch, no new deficit Musculoskeletal: no muscle wasting Psychiatric: A&O x 3 Hosp A/P (1) CVA (cerebral vascular accident) Code(s): I63.9 - CEREBRAL INFARCTION, UNSPECIFIED Status: Acute (2) Coronary atherosclerosis Code(s): I25.10 - ATHSCL HEART DISEASE OF [place] CORONARY ARTERY W/O ANG PCTRS Status: Chronic (3) Essential hypertension Code(s): I10 - ESSENTIAL (PRIMARY) HYPERTENSION Status: Chronic (4) Hyperlipidemia Code(s): E78.5 - HYPERLIPIDEMIA, UNSPECIFIED Status: Chronic (5) Localized osteoarthrosis, lower leg Code(s): M17.9 - OSTEOARTHRITIS OF KNEE, UNSPECIFIED Status: Chronic (6) Type II diabetes mellitus Status: Chronic (7) Vertiginous migraine Code(s): G43.109 - MIGRAINE WITH AURA, NOT INTRACTABLE, W/O STATUS MIGRAINOSUS Status: Suspected - Plan PT/OT, speech therapy 74 year old s/p tpa 2 days ago for left sided weakness. Most likely TIA MRI brain reviewed which was negative for acute intracranial pathology. Continue aspirin and statin for secondary stroke prevention. Neurochecks every 4 hours. Strict control of BP anf BG. Recommend 2d ECHO to rule out cardioembolic source. CTA head and neck results noted. Consider CV surgery input. Telemetry PT/OT/Speech DVT prophylaxis Continue home medications. Continue medical management per primary team.
--- NOTE | 2020-04-08 15:24 | CT ---
CT arteriogram neck with IV contrast and 3-D imaging CT arteriogram head with IV contrast and 3-D imaging HISTORY: Left-sided weakness. Facial droop. FINDINGS: There is normal branching great vessels at the aortic arch with arterial calcification appa rent. Good flow into each vertebral and carotid system. At the right carotid bifurcation, there is calcification and prominent plaque. Motion artifact at the level of the proximal ICA with very high-grade stenosis suspected (likely greater than 90%). Good flow into the remaining patent ICA. On the left, narrowing of the proximal internal carotid artery is suspected. It is partially obscured by motion artifact and contrast in the adjacent jugular vein. [place] of [place] is intact. Calcification at the carotid siphons. Good flow into each cerebral and ce rebellar system. No focal filling defect evident. No enhancing brain lesions. IMPRESSION : No acute vascular abnormalities are demonstrated. Atherosclerosis. Probable high-grade stenosis at each cervical internal carotid artery. There is extensive motion gonsalo fact on this exam. Please consider conventional arteriography for better detail. Findings were called to Dr. Ahuja in the emergency department at 1614 hours. Code CR. Transcribed Date/Time: 04/08/2020 3:24 PM
[2020-04-08] MEDS: Communication Order-Pharmacy FS SCH (19:42)
[2020-04-08] MEDS: Metoprolol Tartrate 50 MG TAB PO SCH (20:11)
[2020-04-08] MEDS: Atorvastatin Calcium 20 MG TAB PO SCH (20:11)
[2020-04-09 05:36] LABS: #Eosinphils 0.1 thou/uL (0.0-0.7); #Lymphocytes 2.7 thou/uL (1.20-3.40); #Monocytes 0.5 thou/uL (0.11-0.59); #Neutrophils 4.6 thou/uL (1.40-6.50); %Basophils 0.5 % (0.0-1.0); %Eosinophils 0.8 % (0.0-10.0); %Lymphocytes 33.7 % (21.0-51.0); %Monocytes 6.6 % (0.0-10.0); %Neutrophils 58.4 % (42.0-75.0); Hemoglobin 14.5 g/dL (12.0-16.0); Mean Corpuscular HGB CONC 34.5 g/dL (32.0-36.0); Mean Corpuscular Hemoglobin 30.8 pg (27.0-31.0); Mean Corpuscular Volume 89.2 fL (78.0-98.0); Mean Platelet Volume 8.6 fL (7.4-10.4); Platelet Count 132 thou/uL (130-400); RBC Distribution Width 12.9 % (11.5-14.5); White Blood Cell (WBC) Count 7.9 thou/uL (4.8-10.8)
[2020-04-09 05:56] LABS: Anion Gap 11 mmol/L (10-20); BUN (Urea Nitrogen) 16 mg/dL (9.8-20.1); Calc. Creatinine Clearance 66 mL/min (70-130); Calcium 9.4 mg/dL (7.8-10.44); Carbon Dioxide 25 mmol/L (23-31); Chloride 108 mmol/L (98-107); Estimated GFR-MDRD 68; Glucose 102 mg/dL (83-110); Potassium 3.9 mmol/L (3.5-5.1); Sodium 140 mmol/L (136-145)
[2020-04-09] MEDS: glipiZIDE 5 MG TAB PO SCH ×2 (09:59→16:15)
[2020-04-09] MEDS: Aspirin 325 MG TAB PO SCH (09:59)
[2020-04-09] MEDS: Alogliptin 6.25 MG TAB PO SCH (09:59)
[2020-04-09] MEDS: Lisinopril 20 MG TAB PO SCH ×2 (09:59→22:41)
[2020-04-09] MEDS: Metoprolol Tartrate 50 MG TAB PO SCH ×2 (10:02→22:43)
[2020-04-09] MEDS: Pantoprazole 40 MG VIAL IVP SCH (10:02)
--- NOTE | 2020-04-09 13:33 | PDOC.HOSPP ---
- Subjective Encounter Date: 04/09/20 Subjective: NEUROLOGY PROGRESS NOTE Patient clinically much improved. No acute events overnight. - Objective Vital Signs & Weight: Vital Signs (12 hours) Temp Pulse Resp BP BP Pulse Ox 04/09/20 12:40 69 167/85 H 04/09/20 11:17 98.0 F 69 16 187/72 H 96 04/09/20 09:59 194/81 H 04/09/20 08:06 96 04/09/20 07:15 98.4 F 74 18 192/79 H 96 04/09/20 04:00 96.6 F L 70 18 159/87 H 98 Weight Admit Weight 158 lb 4.8 oz Weight 158 lb 4.8 oz Most Recent Monitor Data Heart Rate from ECG 83 NIBP 152/76 NIBP BP-Mean 101 Respiration from ECG 16 SpO2 96 I&O: 04/08/20 04/09/20 04/10/20 06:59 06:59 06:59 Intake Total 1030 680 480 Output Total 700 Balance 330 680 480 Result Diagrams: 04/09/20 04:46 04/09/20 04:46 Additional Labs: Accuchecks 04/09/20 04/09/20 04/08/20 10:55 05:51 19:42 POC Glucose 115 H 104 178 H 04/08/20 16:30 POC Glucose 160 H Radiology Reviewed by me: Yes EKG Reviewed by me: Yes Hospitalist ROS - Review of Systems Constitutional: denies: fever, chills, sweats, weakness, malaise, other Eyes: denies: pain, vision change, conjunctivae inflammation, eyelid inflammation, redness, other ENT: denies: ear pain, ear discharge, nose pain, nose discharge, nose congestion , mouth pain, mouth swelling, throat pain, throat swelling, other Respiratory: denies: cough, dry, shortness of breath, hemoptysis, SOB with excertion, pleuritic pain, sputum, wheezing, other Cardiovascular: denies: chest pain, palpitations, orthopnea, paroxysmal noc. dyspnea, edema, light headedness, other Gastrointestinal: denies: nausea, vomiting, abdominal pain, diarrhea, constipation, melena, hematochezia, other Genitourinary: denies: dysuria, frequency, incontinence, hematuria, retention, other Musculoskeletal: denies: neck pain, shoulder pain, arm pain, back pain, hand pain, leg pain, foot pain, other Neurological: reports: weakness. denies: numbness, incoordination, change in speech, confusion, seizures, other - Medication Medications: Active Medications Generic Name Dose Route Start Last Admin Trade Name Freq PRN Reason Stop Dose Admin Acetaminophen 650 mg 04/06/20 18:18 04/07/20 22:58 Tylenol PO 650 mg Q4H PRN Administration Headache/Fever/Mild Pain (1-3) Alogliptin Benzoate 12.5 mg 04/08/20 09:00 04/09/20 09:59 Alogliptin PO 12.5 mg DAILY TANNER Administration Aspirin 325 mg 04/08/20 09:00 04/09/20 09:59 Aspirin PO 325 mg DAILY TANNER Administration Atorvastatin Calcium 20 mg 04/07/20 21:00 04/08/20 20:11 Lipitor PO 20 mg HS TANNER Administration Cholecalciferol 1,000 units 04/08/20 09:00 04/09/20 09:59 Vitamin D3 PO 1,000 units DAILY TANNER Administration Glipizide 5 mg 04/07/20 16:30 04/09/20 09:59 Glucotrol PO 5 mg BID-AC TANNER Administration Hydralazine HCl 10 mg 04/06/20 18:18 04/08/20 12:53 Apresoline SLOW IVP 10 mg Q4H PRN Administration SBP > 180 or DBP > 105 Labetalol HCl 10 mg 04/06/20 18:18 04/08/20 11:49 Normodyne SLOW IVP 10 mg Q10MIN PRN Administration SBP > 180 or DBP > 105 Lisinopril 20 mg 04/07/20 21:00 04/09/20 09:59 Zestril PO 20 mg BID TANNER Administration Lorazepam 0.5 mg 04/08/20 08:30 04/08/20 08:51 Ativan PO 0.5 mg WILLCALL TANNER Administration Metoprolol Tartrate 50 mg 04/08/20 21:00 04/09/20 10:02 Lopressor PO 50 mg BID TANNER Administration Ondansetron HCl 4 mg 04/06/20 18:18 04/07/20 22:58 Zofran IVP 4 mg Q6H PRN Administration Nausea/Vomiting Sertraline HCl 100 mg 04/08/20 09:00 04/09/20 10:02 Zoloft PO 100 mg DAILY TANNER Administration Sodium Chloride 10 ml 04/06/20 21:00 04/09/20 10:02 Flush - Normal Saline IVF 10 ml Q12HR TANNER Administration - Exam General Appearance: awake alert Eye: PERRL ENT: normocephalic atraumatic Neck: supple Heart: RRR Respiratory: CTAB Gastrointestinal: soft Extremities: no cyanosis Skin: normal turgor Neurological: no new deficit Psychiatric: normal affect, normal behavior, A&O x 3, oriented to person, oriented to place, oriented to time Hosp A/P (1) CVA (cerebral vascular accident) Code(s): I63.9 - CEREBRAL INFARCTION, UNSPECIFIED Status: Acute (2) Coronary atherosclerosis Code(s): I25.10 - ATHSCL HEART DISEASE OF [place] CORONARY ARTERY W/O ANG PCTRS Status: Chronic (3) Essential hypertension Code(s): I10 - ESSENTIAL (PRIMARY) HYPERTENSION Status: Chronic (4) Hyperlipidemia Code(s): E78.5 - HYPERLIPIDEMIA, UNSPECIFIED Status: Chronic (5) Localized osteoarthrosis, lower leg Code(s): M17.9 - OSTEOARTHRITIS OF KNEE, UNSPECIFIED Status: Chronic (6) Type II diabetes mellitus Status: Chronic (7) Vertiginous migraine Code(s): G43.109 - MIGRAINE WITH AURA, NOT INTRACTABLE, W/O STATUS MIGRAINOSUS Status: Suspected - Plan 74 year old s/p tpa 3 days ago for left sided weakness. Most likely TIA MRI brain reviewed which was negative for acute intracranial pathology. Continue aspirin and statin for secondary stroke prevention. 2 D Echo revealed EF 50-55%. Severe diastolic dysfunction. Neurochecks every 4 hours. Strict control of BP and BG. CTA head and neck results noted. Consider CV surgery input. Telemetry PT/OT/Speech DVT prophylaxis Continue home medications. Continue medical management per primary team. Plan discussed with Dr. Bellamy and the patient
--- NOTE | 2020-04-09 14:04 | PDOC.HOSPP ---
- Subjective Encounter Date: 04/09/20 Encounter Time: 14:08 Subjective: Pt seen for followup re; ischemic CVA. Feels better today. - Objective Vital Signs & Weight: Vital Signs (12 hours) Temp Pulse Resp BP BP Pulse Ox 04/09/20 12:40 69 167/85 H 04/09/20 11:17 98.0 F 69 16 187/72 H 96 04/09/20 09:59 194/81 H 04/09/20 08:06 96 04/09/20 07:15 98.4 F 74 18 192/79 H 96 04/09/20 04:00 96.6 F L 70 18 159/87 H 98 Weight Admit Weight 158 lb 4.8 oz Weight 158 lb 4.8 oz Most Recent Monitor Data Heart Rate from ECG 83 NIBP 152/76 NIBP BP-Mean 101 Respiration from ECG 16 SpO2 96 I&O: 04/08/20 04/09/20 04/10/20 06:59 06:59 06:59 Intake Total 1030 680 480 Output Total 700 Balance 330 680 480 Result Diagrams: 04/09/20 04:46 04/09/20 04:46 Additional Labs: Accuchecks 04/09/20 04/09/20 04/08/20 10:55 05:51 19:42 POC Glucose 115 H 104 178 H 04/08/20 16:30 POC Glucose 160 H Labs and MARs reviewed by me EKG Reviewed by me: Yes (Tele: NSR) Hospitalist ROS - Review of Systems Cardiovascular: denies: chest pain, palpitations, orthopnea, paroxysmal noc. dyspnea, edema, light headedness Gastrointestinal: denies: nausea, vomiting, abdominal pain, diarrhea, constipation, melena, hematochezia Neurological: reports: weakness - Medication Medications: Active Medications Generic Name Dose Route Start Last Admin Trade Name Freq PRN Reason Stop Dose Admin Acetaminophen 650 mg 04/06/20 18:18 04/07/20 22:58 Tylenol PO 650 mg Q4H PRN Administration Headache/Fever/Mild Pain (1-3) Alogliptin Benzoate 12.5 mg 04/08/20 09:00 04/09/20 09:59 Alogliptin PO 12.5 mg DAILY TANNER Administration Aspirin 325 mg 04/08/20 09:00 04/09/20 09:59 Aspirin PO 325 mg DAILY TANNER Administration Atorvastatin Calcium 20 mg 04/07/20 21:00 04/08/20 20:11 Lipitor PO 20 mg HS TANNER Administration Cholecalciferol 1,000 units 04/08/20 09:00 04/09/20 09:59 Vitamin D3 PO 1,000 units DAILY TANNER Administration Glipizide 5 mg 04/07/20 16:30 04/09/20 09:59 Glucotrol PO 5 mg BID-AC TANNER Administration Hydralazine HCl 10 mg 04/06/20 18:18 04/08/20 12:53 Apresoline SLOW IVP 10 mg Q4H PRN Administration SBP > 180 or DBP > 105 Labetalol HCl 10 mg 04/06/20 18:18 04/08/20 11:49 Normodyne SLOW IVP 10 mg Q10MIN PRN Administration SBP > 180 or DBP > 105 Lisinopril 20 mg 04/07/20 21:00 04/09/20 09:59 Zestril PO 20 mg BID TANNER Administration Lorazepam 0.5 mg 04/08/20 08:30 04/08/20 08:51 Ativan PO 0.5 mg WILLCALL TANNER Administration Metoprolol Tartrate 50 mg 04/08/20 21:00 04/09/20 10:02 Lopressor PO 50 mg BID TANNER Administration Ondansetron HCl 4 mg 04/06/20 18:18 04/07/20 22:58 Zofran IVP 4 mg Q6H PRN Administration Nausea/Vomiting Sertraline HCl 100 mg 04/08/20 09:00 04/09/20 10:02 Zoloft PO 100 mg DAILY TANNER Administration Sodium Chloride 10 ml 04/06/20 21:00 04/09/20 10:02 Flush - Normal Saline IVF 10 ml Q12HR TANNER Administration - Exam General Appearance: awake alert Eye: anicteric sclera ENT: normocephalic atraumatic Neck: symmetric Heart: RRR Respiratory: CTAB, no wheezes Gastrointestinal: soft, non-tender Neurological - other findings: L weakness Psychiatric: normal affect, normal behavior Hosp A/P (1) CVA (cerebral vascular accident) Code(s): I63.9 - CEREBRAL INFARCTION, UNSPECIFIED Status: Acute (2) Essential hypertension Code(s): I10 - ESSENTIAL (PRIMARY) HYPERTENSION Status: Chronic (3) Type II diabetes mellitus Status: Chronic (4) Hyperlipidemia Code(s): E78.5 - HYPERLIPIDEMIA, UNSPECIFIED Status: Chronic - Plan PT/OT, out of bed/ambulate Clinically improving Continue aspirin and statin Continue Protonix Blood sugars reasonably controlled. Change metoprolol to 75 mg BID Consult CV surgery re: ICA stenosis. Rehab screen.
[2020-04-09] MEDS ORDERED: Metoprolol Tartrate 25 MG TAB PO SCH (14:15)
--- NOTE | 2020-04-09 20:31 | CON ---
DATE OF CONSULTATION: HISTORY OF PRESENT ILLNESS: This is a 74-year-old female, known to me from previous coronary artery bypass grafting. She has had multiple admissions over the past 10 to 15 years for numbness and hemiparetic symptoms with no prior documented stroke by CT or brain MRI. She has had numerous neurologic consultations with no concrete findings. She does have a history of coronary artery disease with coronary artery bypass grafting in the remote past and then more recent cardiac catheterization about 4 years ago showing patent grafts x4. Prior to this admission, she did receive tPA for her symptoms. A CT scan of the neck and head was done. Unfortunately, due to motion artifact, the carotid bifurcations could not be evaluated, and there was concern for some significant stenosis. Her last carotid sonogram was about 3 years ago and was unremarkable. Her current symptoms are symptoms of left-sided numbness, some facial asymmetry, dizziness, and headache. She states that the symptoms lasted about 2 hours Monday morning, and then she presented to the emergency room, where she received tPA and was placed in the ICU. She has had a neurology consultation. PAST MEDICAL HISTORY: As noted above includes gastroesophageal reflux, coronary artery disease, hypertension, multiple previous central nervous system evaluations for hemiplegia, previous migraine, and anxiety. PAST SURGICAL HISTORY: Coronary artery bypass grafting x4, hysterectomy, cholecystectomy, cataract surgery. She has a history of anxiety and depression. SOCIAL HISTORY: She lives alone. MEDICATIONS: Multiple, and of note, did include daily aspirin. She also has a history of diabetes mellitus, on medication for that. PHYSICAL EXAMINATION: GENERAL: She is alert, cooperative, in no distress. Neurologic exam is intact. VITAL SIGNS: Blood pressure is 143/70, heart rate is 72. NECK: Without carotid bruits. LUNGS: Clear to auscultation. CARDIAC: Very soft systolic murmur. ABDOMEN: Obese, soft, nontender. EXTREMITIES: She has no peripheral edema with intact pulses. NEUROLOGIC: Motor strength is normal. Cognitive function is normal. There is no facial asymmetry. ASSESSMENT AND PLAN: At this time, I do not think we should proceed with angiography with initial study, but we will obtain a carotid ultrasound to evaluate the carotid bulbs. If this study is unremarkable, then she can be followed up expectantly. If this study is significantly abnormal, further evaluation or intervention may be indicated. Job ID: [id number]
[2020-04-09] MEDS: Atorvastatin Calcium 20 MG TAB PO SCH (22:41)
[2020-04-10 05:08] LABS: #Eosinphils 0.1 thou/uL (0.0-0.7); #Lymphocytes 2.6 thou/uL (1.20-3.40); #Monocytes 0.5 thou/uL (0.11-0.59); #Neutrophils 4.1 thou/uL (1.40-6.50); %Basophils 0.3 % (0.0-1.0); %Eosinophils 1.8 % (0.0-10.0); %Lymphocytes 35.2 % (21.0-51.0); %Monocytes 6.8 % (0.0-10.0); %Neutrophils 55.8 % (42.0-75.0); Hemoglobin 14.1 g/dL (12.0-16.0); Mean Corpuscular HGB CONC 33.5 g/dL (32.0-36.0); Mean Corpuscular Hemoglobin 29.6 pg (27.0-31.0); Mean Corpuscular Volume 88.4 fL (78.0-98.0); Mean Platelet Volume 7.8 fL (7.4-10.4); Platelet Count 123 thou/uL (130-400); RBC Distribution Width 12.5 % (11.5-14.5); Red Blood Cell (RBC) Count 4.76 mill/uL (4.20-5.40); White Blood Cell (WBC) Count 7.3 thou/uL (4.8-10.8)
[2020-04-10 05:36] LABS: Anion Gap 10 mmol/L (10-20); BUN (Urea Nitrogen) 16 mg/dL (9.8-20.1); Calc. Creatinine Clearance 61 mL/min (70-130); Calcium 9.3 mg/dL (7.8-10.44); Carbon Dioxide 26 mmol/L (23-31); Chloride 108 mmol/L (98-107); Estimated GFR-MDRD 62; Glucose 94 mg/dL (83-110); Potassium 3.8 mmol/L (3.5-5.1); Sodium 140 mmol/L (136-145)
--- NOTE | 2020-04-10 08:22 | ULT ---
Carotid duplex sonogram HISTORY: Vascular disease. Abnormal CT. FINDINGS: Right: Color and spectral Doppler evaluation performed. Plaque is seen within the carotid arteries. P robable stenosis at the origin of the external carotid artery. Narrowing of the internal carotid artery demonstrated morphologically. Peak systolic velocity of 80 cm/s, and IC to CC ratio of 1.2 sug gest no hemodynamically significant stenosis within the ICA. Antegrade flow is present within the vertebral artery. Left: Mild plaque. Color and spectral Doppler evaluation, peak systolic velocity of 104 cm second, an d IC to CC ratio 1.1 suggest no hemodynamically significant stenosis within the extracranial left ICA. Antegrade flow within the vertebral artery. IMPRESSION : Atherosclerotic plaque is greater on the right than left. There is morphologic suggestion of mild nupur nosis of the right ICA, although sonographic velocity measurements on each side show no evidence of significant stenosis.
[2020-04-10] MEDS: glipiZIDE 5 MG TAB PO SCH ×2 (08:36→17:00)
[2020-04-10] MEDS: Aspirin 325 MG TAB PO SCH (08:36)
[2020-04-10] MEDS: Metoprolol Tartrate 50 MG TAB PO SCH (08:36)
[2020-04-10] MEDS: Acetaminophen 325 MG TAB PO PRN (08:36)
[2020-04-10] MEDS: Lisinopril 20 MG TAB PO SCH (08:36)
[2020-04-10] MEDS: Alogliptin 6.25 MG TAB PO SCH (09:33)
--- NOTE | 2020-04-10 12:49 | PDOC.HOSPP ---
- Subjective Encounter Date: 04/10/20 Subjective: NEUROLOGY PROGRESS NOTE Patient clinically much improved. No acute events overnight. - Objective Vital Signs & Weight: Vital Signs (12 hours) Temp Pulse Resp BP BP Pulse Ox 04/10/20 12:00 98.7 F 57 L 16 170/78 H 92 L 04/10/20 09:39 55 L 178/84 H 04/10/20 08:36 196/72 H 04/10/20 08:30 96 04/10/20 03:35 97.7 F 58 L 20 169/78 H 96 Weight Admit Weight 158 lb 4.8 oz Weight 158 lb 4.8 oz Most Recent Monitor Data Heart Rate from ECG 83 NIBP 152/76 NIBP BP-Mean 101 Respiration from ECG 16 SpO2 96 I&O: 04/09/20 04/10/20 04/11/20 06:59 06:59 06:59 Intake Total 680 870 Balance 680 870 Result Diagrams: 04/10/20 04:50 04/10/20 04:50 Additional Labs: Accuchecks 04/10/20 04/10/20 04/09/20 10:53 05:36 21:18 POC Glucose 79 104 104 04/09/20 16:45 POC Glucose 106 Radiology Reviewed by me: Yes EKG Reviewed by me: Yes Hospitalist ROS - Review of Systems Constitutional: denies: fever, chills, sweats, weakness, malaise, other Eyes: denies: pain, vision change, conjunctivae inflammation, eyelid inflammation, redness, other ENT: denies: ear pain, ear discharge, nose pain, nose discharge, nose congestion , mouth pain, mouth swelling, throat pain, throat swelling, other Cardiovascular: denies: chest pain, palpitations, orthopnea, paroxysmal noc. dyspnea, edema, light headedness, other Gastrointestinal: denies: nausea, vomiting, abdominal pain, diarrhea, constipation, melena, hematochezia, other Genitourinary: denies: dysuria, frequency, incontinence, hematuria, retention, other Musculoskeletal: denies: neck pain, shoulder pain, arm pain, back pain, hand pain, leg pain, foot pain, other Skin: denies: rash, lesions, everett, bruising, other Neurological: denies: weakness, numbness, incoordination, change in speech, confusion, seizures, other - Medication Medications: Active Medications Generic Name Dose Route Start Last Admin Trade Name Freq PRN Reason Stop Dose Admin Acetaminophen 650 mg 04/06/20 18:18 04/10/20 08:36 Tylenol PO 650 mg Q4H PRN Administration Headache/Fever/Mild Pain (1-3) Alogliptin Benzoate 12.5 mg 04/08/20 09:00 04/10/20 09:33 Alogliptin PO 12.5 mg DAILY TANNER Administration Aspirin 325 mg 04/08/20 09:00 04/10/20 08:36 Aspirin PO 325 mg DAILY TANNER Administration Atorvastatin Calcium 20 mg 04/07/20 21:00 04/09/20 22:41 Lipitor PO 20 mg HS TANNER Administration Cholecalciferol 1,000 units 04/08/20 09:00 04/10/20 08:36 Vitamin D3 PO 1,000 units DAILY TANNER Administration Glipizide 5 mg 04/07/20 16:30 04/10/20 08:36 Glucotrol PO 5 mg BID-AC TANNER Administration Hydralazine HCl 10 mg 04/06/20 18:18 04/08/20 12:53 Apresoline SLOW IVP 10 mg Q4H PRN Administration SBP > 180 or DBP > 105 Labetalol HCl 10 mg 04/06/20 18:18 04/08/20 11:49 Normodyne SLOW IVP 10 mg Q10MIN PRN Administration SBP > 180 or DBP > 105 Lisinopril 20 mg 04/07/20 21:00 04/10/20 08:36 Zestril PO 20 mg BID TANNER Administration Lorazepam 0.5 mg 04/08/20 08:30 04/08/20 08:51 Ativan PO 0.5 mg WILLCALL TANNER Administration Metoprolol Tartrate 75 mg 04/09/20 21:00 04/10/20 08:36 Lopressor PO 75 mg BID TANNER Administration Ondansetron HCl 4 mg 04/06/20 18:18 04/07/20 22:58 Zofran IVP 4 mg Q6H PRN Administration Nausea/Vomiting Pantoprazole Sodium 40 mg 04/10/20 09:00 04/10/20 08:37 Protonix PO 40 mg DAILY TANNER Administration Sertraline HCl 100 mg 04/08/20 09:00 04/10/20 08:37 Zoloft PO 100 mg DAILY TANNER Administration Sodium Chloride 10 ml 04/06/20 21:00 04/10/20 08:37 Flush - Normal Saline IVF 10 ml Q12HR TANNER Administration - Exam General Appearance: awake alert Eye: PERRL ENT: normocephalic atraumatic Neck: supple Heart: RRR Respiratory: CTAB Gastrointestinal: soft Extremities: no cyanosis Skin: normal turgor Neurological: no new deficit Musculoskeletal: normal tone, no muscle wasting Psychiatric: normal affect, normal behavior, A&O x 3 Hosp A/P (1) Coronary atherosclerosis Code(s): I25.10 - ATHSCL HEART DISEASE OF [place] CORONARY ARTERY W/O ANG PCTRS Status: Chronic (2) Essential hypertension Code(s): I10 - ESSENTIAL (PRIMARY) HYPERTENSION Status: Chronic (3) Hyperlipidemia Code(s): E78.5 - HYPERLIPIDEMIA, UNSPECIFIED Status: Chronic (4) Localized osteoarthrosis, lower leg Code(s): M17.9 - OSTEOARTHRITIS OF KNEE, UNSPECIFIED Status: Chronic (5) Type II diabetes mellitus Status: Chronic (6) Vertiginous migraine Code(s): G43.109 - MIGRAINE WITH AURA, NOT INTRACTABLE, W/O STATUS MIGRAINOSUS Status: Suspected (7) TIA (transient ischemic attack) Code(s): G45.9 - TRANSIENT CEREBRAL ISCHEMIC ATTACK, UNSPECIFIED Status: Acute - Plan Consults: other (rehab) 74 year old s/p tpa for left sided weakness. Most likely TIA MRI brain reviewed which was negative for acute intracranial pathology. Continue aspirin and statin for secondary stroke prevention. 2 D Echo revealed EF 50-55%. Severe diastolic dysfunction. Neurochecks every 4 hours. Strict control of BP and BG. CTA head and neck results noted. Repeat cariod dopplers results noted. CV surgery on board. Telemetry PT/OT/Speech DVT prophylaxis Continue home medications. Continue medical management per primary team. Plan discussed with the patient
--- NOTE | 2020-04-10 15:37 | DIS ---
DATE OF ADMISSION: 04/06/2020 DATE OF DISCHARGE: 04/09/2020 PRIMARY CARE PROVIDER: Josselin Hector, MALENA-Neyda DISCHARGE DIAGNOSES: 1. Transient ischemic attack. 2. Hypertensive urgency. 3. Hypokalemia. 4. Diastolic dysfunction. CONDITION: Condition of the patient on the day of discharge: Stable. I assessed Ms. Sykes on the day of discharge. She denies any chest pain or shortness of breath. Vital signs are stable. S1 and S2 are heard, regular. Lungs are clear to auscultation bilaterally. CONSULTATIONS DURING THIS HOSPITALIZATION: 1. Neurology, Dr. Herndon. 2. Pulmonary and Critical Care Medicine, Dr. Wynn. 3. Cardiovascular Surgery, Dr. Irvin. HOSPITAL COURSE: Ms. Sykes is a pleasant 74-year-old lady, who was admitted to [facility] on April 06, 2020, for left-sided weakness. She received tPA at the time of admission. She was admitted to Critical Care Unit. Followup CT scan of brain on April 07 did not show any acute intracranial abnormality. She also had MRI of the brain on April 08, 2020, which showed [id number] chronic ischemic white matter changes and diffuse involutional changes, otherwise negative. She had CT angiogram at the time of admission, which was reported as probable high-grade stenosis at each cervical internal carotid artery. She was seen by Cardiovascular Surgery Service. She had carotid Dopplers, which did not show any hemodynamically significant stenosis. She was seen by Neurology Service. Her aspirin was increased from 81 mg to 325 mg daily. 2D echocardiogram showed left ventricular ejection fraction of 55% to 60%, mild concentric left ventricular hypertrophy, E/A flow reversal suggestive of diastolic dysfunction, severely dilated left atrium, mild mitral regurgitation, and mild tricuspid regurgitation. She continued to improve slowly. She was seen by Therapy Services. She has been recommended inpatient rehab. She is being discharged to [facility]. ACTIVITY: As tolerated. DIET: Heart healthy and diabetic. POST-ACUTE CARE FOLLOWUP: With primary care provider in 7 to 10 days. DISCHARGE DESTINATION: [facility]. TIME SPENT: Total amount of time spent in coordinating this discharge: 32 minutes. Job ID: [id number]
[2020-04-10 15:52] VITALS: BP 160/72; TEMP 98.4
--- NOTE | 2020-04-13 10:41 | PQF ---
NGHIA MARIA DAVID [id number] [facility] – [place]-[facility] [id number] CLINICAL DOCUMENTATION CLARIFICATION FORM: POST DISCHARGE Addendum to original discharge summary date: ____ Late entry note date: __ DATE: 04/13/2020 ATTN:Bro Bellamy Please exercise your independent, professional judgment in responding to the clarification form. Clinical indicators are provided on the bottom of this form for your review Please check appropriate box(s): Conflicting documentation was noted in the Medical Record, please clarify if patient is being treated/monitored for: [ ] CVA [ X ] TIA [ ] Other diagnosis [ ] Unable to determine If TIA please specify etiology: Carotid stenosis (x) Unknown etiology For continuity of documentation, please document condition throughout progress notes and discharge summary. Thank You. CLINICAL INDICATORS - SIGNS / SYMPTOMS/ LABS HP 04/06 "acute ischemic cerebrovascular accident" ED Notes 04/06 "CVA" PN 04/08 "most likely TIA" ED Notes 04/06 "worsening left upper and left lower extremity weakness" ED Notes 06 "NIH=9 GCS=15" DS 04/09 "Carotid stenosis" DS 04/09 "MRI of brain:chronic ischemic white matter" DS 04/09 "CT of brain:no acute intracranial abnormality" RISK FACTORS HTN-ED Notes 04/06 High cholesterol-ED Notes 06 DM-HP 04/06 Carotid stenosis-DS 04/[address]-Collected 04/06 CT angiogram of brain-Collected 04/06 TPA-ED Notes 04/06 Neurology consult-DS 04/09 IVF-MAR 04/06 Aspirin 81mg Oral-JAN 09 (This form is maintained as a part of the permanent medical record) 2014 [employer]. All Rights Reserved [email or web address] [phone] [facility] [facility]ALTH[facility]ur[facility]
== END 2020-04-10 18:52 | DRG 62 ==
LOC: ERS 15:51 → CCU 17:24 → 2SE 04-07 22:46
PROVIDERS: ADMIT Internal Medicine; ATTEND Internal Medicine
DX: G45.9 Transient cerebral ischemic attack, unspecified (principal); G81.94 Hemiplegia, unspecified affecting left nondominant side; I65.22 Occlusion and stenosis of left carotid artery; R29.810 Facial weakness; R47.81 Slurred speech; K21.9 Gastro-esophageal reflux disease without esophagitis; E78.00 Pure hypercholesterolemia, unspecified; G43.909 Migraine, unspecified, not intractable, without status migrainosus; I10 Essential (primary) hypertension; F41.9 Anxiety disorder, unspecified; F32.9 Major depressive disorder, single episode, unspecified; E11.9 Type 2 diabetes mellitus without complications; E87.6 Hypokalemia; Z96.659 Presence of unspecified artificial knee joint; E66.9 Obesity, unspecified; I25.10 Atherosclerotic heart disease of native coronary artery without angina pectoris; M19.90 Unspecified osteoarthritis, unspecified site; I08.1 Rheumatic disorders of both mitral and tricuspid valves; I16.0 Hypertensive urgency; Z86.73 Personal history of transient ischemic attack (TIA), and cerebral infarction without residual deficits; Z90.49 Acquired absence of other specified parts of digestive tract; Z95.1 Presence of aortocoronary bypass graft; Z90.710 Acquired absence of both cervix and uterus; Z79.84 Long term (current) use of oral hypoglycemic drugs; Z79.899 Other long term (current) drug therapy; Z68.30 Body mass index [BMI] 30.0-30.9, adult
CPT/HCPCS: 36415; 36416; 70450; 70496; 70498; 70551; 71045; 80048; 80053; 80061; 81003; 83690; 83735; 84484; 85025; 85610; 85730; 93005; 93306; 93880; 96365; 96366; 96375; C9113; J0360; J1200; J2405; J2930; J2997; J3480; Q9967

== ENCOUNTER 2020-08-26 12:19 | Observation (INO) | payer MEDICARE, OTHER ==
[2020-08-26] MEDS ORDERED: Meclizine HCl 25 MG TAB ONE ×2 (13:07→14:06)
[2020-08-26 13:17] LABS: #Eosinphils 0.1 thou/uL (0.0-0.7); #Lymphocytes 1.6 thou/uL (1.20-3.40); #Monocytes 0.4 thou/uL (0.11-0.59); #Neutrophils 2.5 thou/uL (1.40-6.50); %Basophils 0.3 % (0.0-1.0); %Eosinophils 1.4 % (0.0-10.0); %Lymphocytes 35.1 % (21.0-51.0); %Monocytes 8.3 % (0.0-10.0); %Neutrophils 54.9 % (42.0-75.0); Hemoglobin 13.3 g/dL (12.0-16.0); Mean Corpuscular HGB CONC 33.8 g/dL (32.0-36.0); Mean Corpuscular Hemoglobin 30.5 pg (27.0-31.0); Mean Corpuscular Volume 90.4 fL (78.0-98.0); Mean Platelet Volume 7.6 fL (7.4-10.4); Platelet Count 107 thou/uL (130-400); RBC Distribution Width 12.2 % (11.5-14.5); Red Blood Cell (RBC) Count 4.35 mill/uL (4.20-5.40); White Blood Cell (WBC) Count 4.5 thou/uL (4.8-10.8)
--- NOTE | 2020-08-26 13:27 | CT ---
CT HEAD WITHOUT CONTRAST: Date: 08/26/2020 COMPARISON: None. HISTORY: Fall, altered mental status. TECHNIQUE: Axial CT imaging at 5 mm intervals from vertex through skull base without contrast. FINDINGS: The visualized paranasal sinuses and mastoid air cells are well aerated. There is no displaced calvar ial fracture. No intracranial hemorrhage, midline shift, or mass effect. There is mild diffuse cerebr al volume loss. There is mild periventricular hypodensity suggesting a degree of small vessel disease . IMPRESSION: No intracranial hemorrhage or displaced calvarial fracture. POS: AH
[2020-08-26 13:28] LABS: ALT (SGPT) 17 U/L (8-55); AST (SGOT) 22 U/L (5-34); Albumin 3.8 g/dL (3.4-4.8); Alkaline Phosphatase 79 U/L (40-110); Anion Gap 10 mmol/L (10-20); BUN (Urea Nitrogen) 14 mg/dL (9.8-20.1); Bilirubin, Total 0.3 mg/dL (0.2-1.2); CK (CPK) 65 U/L (29-168); Calc. Creatinine Clearance 0 mL/min (70-130); Carbon Dioxide 25 mmol/L (23-31); Chloride 109 mmol/L (98-107); Estimated GFR-MDRD 52; Globulin 2.4 g/dL (2.4-3.5); Glucose 146 mg/dL (83-110); Lipase 11 U/L (8-78); Potassium 3.6 mmol/L (3.5-5.1); Protein, Total 6.2 g/dL (6.0-8.3); Sodium 140 mmol/L (136-145)
[2020-08-26] MEDS ORDERED: Iopamidol-370 76% 500 ML 1 ML ONE (13:48)
[2020-08-26 15:20] LABS: Bilirubin Negative (Negative); Blood, Urine Negative (Negative); Clarity Clear (Clear); Glucose, Urine (Dipstick) Normal (Negative); Ketone, Urine Negative (Negative); Leukocyte Negative Leu/uL (Negative); Nitrite Negative (Negative); Protein, Urine (Dipstick) Negative (Neg-Trace); Specific Gravity, Urine 1.007 (1.002-1.036); Urobilinogen Normal mg/dL (Less than 2); pH, Urine 6.5 (5.0-9.0)
--- NOTE | 2020-08-26 17:32 | PDOC.HHP ---
Hospitalist HPI - History of Present Illness dizziness History of Present Illness: PCP: Josselin Hector The patient is a 75-year-old female with past medical history significant for high cholesterol, diabetes, CVA, GERD, migraines, and chronic vertigo she presents to the ER today by EMS for increased dizziness and generalized weakness. The patient states that she has had a headache in the frontal region off and on for 2 weeks. She states that it resolved on its own but then soon returned. She is light sensitive when it occurs. No associated nausea or vomiting. Patient has had dizziness since last night, she states it is worse with her eyes closed. Her dizziness is normally relieved with meclizine however it has not helped her today. No medications have been tried to relieve the headache. She states that last night at midnight she was walking in her house and the dizziness was too much and it caused her to fall backwards. She landed on her back and her left shoulder. She states that she was unable to get off the floor on her own until her home health nurse practitioner came at 930 this morning and they called EMS. However, she does state that she was able to crawl to the bathroom and was able to urinate in the sink during the night and then she lowered herself back to the floor. She appears to be a poor historian. When EMS arrived her blood sugar was 46, they gave 2 oral glucose and her sugar cathy to 165. The home health nurse also reported that the patient was not been acting like herself lately and has recently had a decrease in appetite. In the ER the patient is unable to stand at the side of her bed without falling back onto the bed due to the dizziness where she is normally independent at home. ED Course: Today in the ER they completed a brain CT, lab work, urinalysis, and EKG. She had 500 mL of normal saline and 2 doses of meclizine 25 mg oral. Her NIH in the ER was a 0. Hospitalist ROS - Review of Systems Constitutional: reports: weakness, other (Headache and dizziness) Musculoskeletal: reports: shoulder pain (Left) All other systems reviewed; all pertinent +/- noted in HPI/Subj - Medication Medications: NKDA Current Medications: traZODone MonAug 26, 2020 14:42 LAM Palmer, Corrie tablet : Strength - 50 mg : ORAL Patient Dose: 50 mg Oral once a day (at bedtime). lisinopril MonAug 26, 2020 14:42 LAM Palmer Rachel tablet : Strength - 20 mg : ORAL Patient Dose: 20 mg Oral 2 times a day. glipiZIDE MonAug 26, 2020 14:42 LAM Palmer Rachel TABLET : Strength - 5 mg : ORAL Patient Dose: 1 tab(s) Oral 2 times a day. sertraline MonAug 26, 2020 14:42 LAM Palmer Rachel TABLET : Strength - 50 mg : ORAL Patient Dose: 100 mg Oral once a day. metoprolol tartrate oral MonAug 26, 2020 14:42 LAM Palmer Rachel TABLET : Strength - 50 mg : ORAL Patient Dose: 1 tab(s) Oral once a day. omeprazole MonAug 26, 2020 14:42 LAM Palmer Rachel CAPSULE,DELAYED RELEASE (ENTERIC COATED) : Strength - 20 mg : ORAL Patient Dose: 40 mg Oral once a day. aspirin oral MonAug 26, 2020 14:43 LAM Palmer Rachel tablet : Strength - 325 mg : ORAL Patient Dose: 1 tab(s) Oral once a day. amLODIPine MonAug 26, 2020 14:43 LAM Palmer Rachel tablet : Strength - 5 mg : ORAL Patient Dose: 1 tab(s) Oral 2 times a day. divalproex MonAug 26, 2020 14:44 LAM Palmer Rachel tablet extended release 24 hr : Strength - 250 mg : ORAL Patient Dose: 1 tab(s) Oral 2 times a day. olmesartan MonAug 26, 2020 14:44 LAM Palmer Rachel tablet : Strength - 5 mg : ORAL Patient Dose: 1 tab(s) Oral once a day. Hospitalist History - Past Medical History Source: patient Cardiac: reports: HTN, Hyperlipidemia SHOWCASE TRIMMER: reports: CVA, Migraine, Vertigo Gastrointestinal: reports: GERD Psych: reports: Anxiety, Depression - Past Surgical History Past Surgical History: reports: Cholecystectomy, CABG, Cataract Removal, Hyster ectomy - Family History Family History: reports: no pertinent history - Social History Smoking Status: Never smoker Alcohol: reports: None Drugs: reports: none Living Situation: Alone Activity level: independent ambulation - Exam General Appearance: NAD, awake alert Eye: PERRL ENT: normocephalic atraumatic, moist mucosa Neck: supple Heart: RRR, no murmur, no gallops, no rubs, normal peripheral pulses Respiratory: CTAB, no wheezes, no rales, no ronchi Gastrointestinal: soft, non-tender, non-distended, normal bowel sounds Extremities: no edema Neurological: normal sensation to touch, no new deficit Musculoskeletal: normal strength Musculoskeletal - other findings: abnormal gait- unable to ambulate Psychiatric: A&O x 3 Hospitalist Results - Labs Result Diagrams: 08/26/20 12:56 08/26/20 12:56 Lab results: WBC 4.5 thou/uL (4.8-10.8) L 08/26/20 12:56 Hgb 13.3 g/dL (12.0-16.0) 08/26/20 12:56 Hct 39.3 % (36.0-47.0) 08/26/20 12:56 MCV 90.4 fL (78.0-98.0) 08/26/20 12:56 Plt Count 107 thou/uL (130-400) L 08/26/20 12:56 Neutrophils % 54.9 % (42.0-75.0) 08/26/20 12:56 Sodium 140 mmol/L (136-145) 08/26/20 12:56 Potassium 3.6 mmol/L (3.5-5.1) 08/26/20 12:56 Chloride 109 mmol/L (98-107) H 08/26/20 12:56 Carbon Dioxide 25 mmol/L (23-31) 08/26/20 12:56 BUN 14 mg/dL (9.8-20.1) 08/26/20 12:56 Creatinine 1.03 mg/dL (0.6-1.1) 08/26/20 12:56 Glucose 146 mg/dL (83-110) H 08/26/20 12:56 Calcium 9.0 mg/dL (7.8-10.44) 08/26/20 12:56 Total Bilirubin 0.3 mg/dL (0.2-1.2) 08/26/20 12:56 AST 22 U/L (5-34) 08/26/20 12:56 ALT 17 U/L (8-55) 08/26/20 12:56 Alkaline Phosphatase 79 U/L (40-110) 08/26/20 12:56 Ammonia 25 umol/L (18-72) 08/26/20 12:56 Creatine Kinase 65 U/L (29-168) 08/26/20 12:56 Troponin I Less than 0.010 ng/mL (< 0.028) 08/26/20 12:56 Serum Total Protein 6.2 g/dL (6.0-8.3) 08/26/20 12:56 Albumin 3.8 g/dL (3.4-4.8) 08/26/20 12:56 Lipase 11 U/L (8-78) 08/26/20 12:56 Urine Ketones Negative mg/dL (Negative) 08/26/20 15:08 Urine Blood Negative (Negative) 08/26/20 15:08 Urine Nitrite Negative (Negative) 08/26/20 15:08 Ur Leukocyte Esterase Negative Jung/uL (Negative) 08/26/20 15:08 - EKG Interpretation EKG: SR 64 bpm, no ectopic beats - Radiology Interpretation CT scan - head Status: report reviewed by me Additional Comment: HEAD Head CT negative, without contrast, no bleed, no mass, no acute ischemic stroke, no acute changes, FINDINGS: The visualized paranasal sinuses and mastoid air cells are well aerated. There is no displaced calvarial fracture. No intracranial hemorrhage, midline shift, or mass effect. There is mild diffuse cerebral volume loss. There is mild periventricular hypodensity suggesting a degree of small vessel disease. IMPRESSION: No intracranial hemorrhage or displaced calvarial fracture. Hospitalist H&P A/P - Plan Plan: Vertigo rule out CVA versus TIA Patient to be admitted to stroke unit on campus monitor Neurology consult in a.m. CTA angio of head and neck MRI in a.m. FLP in a.m. Diabetes type 2 Episode of hypoglycemia this a.m. with EMS Monitor Accu-Cheks AC at bedtime Mild sliding scale insulin Hypertension Monitor vital signs every 4 hour Slowly restart home medications Acute kidney injury GFR at 52, baseline generally 69 Gentle rehydration We will recheck labs in a.m. Fall with extended downtime PT to work with patient Not to get out of bed without nursing assistance Urinalysis ordered VTE prophylaxis with SCDs Palliative care team to assist patient with code status Patient surrogate decision-maker is her son, Chris
[2020-08-26 17:43] VITALS: BMI 29.7
[2020-08-26] MEDS: Sodium Chloride 0.9% 1,000 ML IV SCH (18:20)
--- NOTE | 2020-08-26 19:02 | RAD ---
THREE VIEWS OF THE LEFT SHOULDER; 08/26/20 COMPARISON: 02/27/09 HISTORY: Fall with left shoulder pain. FINDINGS: Three views of the left shoulder shows no evidence of acute fracture or dislocation. Mild soft tissue swelling is seen. No degenerative changes are present. IMPRESSION: No evidence of acute osseous abnormality. POS: EAA
[2020-08-26] MEDS ORDERED: Dextrose 50% Abboject 50 ML SYRINGE SLOW IVP PRN (19:07)
[2020-08-26] MEDS ORDERED: Dextrose 5% in Water 1,000 ML IV PRN (19:07)
[2020-08-26] MEDS ORDERED: HumaLOG 300 UNITS/3 ML VIAL SC PRN ×2 (19:14)
--- NOTE | 2020-08-26 20:20 | CT ---
CTA of the head with IV contrast and 3-D reformatted imaging. CTA of the neck with IV contrast and 3-D reformatted imaging. INDICATION: 75-year-old female with reported history of a fall yesterday with fatigue and weakness wi th dizziness and possible posterior stroke COMPARISON: CT of the brain without contrast dated August 26, 2020, CTA of the head dated 04/06/2020, MRA of the brain dated March 11, [address] of the chest, abdomen and pelvis dated December 21, 2013 FINDINGS: CTA OF THE HEAD WITH CONTRAST: CTA OF THE BRAIN: Right ICA: Patent. Right MCA: Patent. Right ENRRIQUE: Patent. ACOM: Patent. Left ICA: Patent. Left MCA: Patent. Left ENRRIQUE: Patent. PCOMs: Patent. Vertebral arteries: There is mild narrowing involving the proximal intradural left vertebral artery which is stable to the most recent CTA evaluation of the brain. There is a thin septum-like filling defect involving the proximal basilar artery, just distal to the confluence of vertebral arteries, on image 153 series 2. This was likely present on the comparison examination from the April 06, 2020 as well as the MRA of the brain dated March 21, 2015. This may reflect a chronic dissection or small devel opmental septum. Basilar Artery: As above supervisor electronic coils: Patent. Incidentals: No definite abnormal enhancement is noted. There is generalized cerebral and cerebellar atrophy. The [place] lenses have been replaced. CTA OF THE NECK WITH CONTRAST: Right CCA: Patent. Right ICA: Patent. Right Subclavian: Patent. Right Vertebral Artery: Patent. Left CCA: There is mild narrowing involving the origin of the left common carotid artery which is st able to the prior exam. Left ICA: Patent. Left Subclavian: Patent. Left Vertebral Artery: There is mild narrowing involving the origin of the left vertebral artery. Th e remaining cervical course is widely patent. Aerodigestive tract: Clear. Parotids/Submandibular/Thyroid glands: Normal. Lymph nodes: No pathologically enlarged lymph nodes. Lung Apices: There is a stable 4 mm pulmonary nodule the right upper lobe on image 27 series 2. Bones: No acute osseous abnormality. Incidentals: None. IMPRESSION: 1. No acute hemodynamically significant stenosis, occlusion or aneurysmal formation demonstrated. 2. 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
[2020-08-26] MEDS ORDERED: Clopidogrel Bisulfate 300 MG TAB PO SCH (21:00)
--- NOTE | 2020-08-26 21:45 | PDOC.EVN ---
Event Note - Event Note Event Note: Patient with fall yesterday evening at midnight due to acute Ataxia. She has a history of chronic vertigo, relieved with Meclizine and expressed currently inability to stand/walk due to ataxic gait has not occurred before and has not improved despite Meclizine at home. She has had intermittent blurred vision in her right eye today, which has worsened in the last couple of hours since arriving to the stroke floor. Patient has CTA head/neck done in 04/2020 which showed probably high-grade stenosis at each cervical ICA. [place] of [place] intact at that time with good flow into each cerebral and cerebellar system. No focal filling defect evident per report. She was seen by Dr. Irvin who did not recommended angiography and advised a carotid US to assess carotid bulbs, if unremarkable follow-up recommended, if abnormal then intervention would be considered. The Carotid US was done showing atherosclerotic plaque, right >left, with mild stenosis of the right ICA, no hemodynamically significant stenosis noted. The patient was discharged to rehab and remained on Aspirin 325 mg PO daily since then. She has had a CTA head/neck repeated today based on acute ataxia and NIH of 3 upon arrival to stroke floor. Per ED notes she had a NIH of 0. Most recent NIH was 5 per night custodian stroke RN. CTA has been done and showed stable small thin septum-like filling defect in the proximal basilar artery, just distal to the confluence of the vertebral arteries, suspicious for small chronic dissection flap or small developmental intraluminal septum. Otherwise no acute hemodynamically significant stenosis, occlusion or aneurysmal formation noted. I have discussed above CTA findings with Dr. Herndon and based on acute and persisting symptoms and hx of high-grade stenosis, has advised to start Plavix 75 mg x 1, continue daily and continue Aspirin 325 mg daily. Also advised transfer to [facility] for q2h neuro checks. Recommended carotid US in the morning as well as a consult to Dr. Irvin for re-evaluation. Dr. Cmed aware and in agreement with plan as above.
[2020-08-27] MEDS ORDERED: Ondansetron ODT 4 MG TAB PO PRN (02:55)
[2020-08-27] MEDS ORDERED: Ondansetron PF 4 MG/2 ML Vial IVP PRN (02:55)
[2020-08-27 03:55] LABS: #Eosinphils 0.1 thou/uL (0.0-0.7); #Lymphocytes 1.8 thou/uL (1.20-3.40); #Monocytes 0.3 thou/uL (0.11-0.59); #Neutrophils 2.4 thou/uL (1.40-6.50); %Basophils 0.5 % (0.0-1.0); %Eosinophils 2.5 % (0.0-10.0); %Lymphocytes 38.9 % (21.0-51.0); %Monocytes 7.1 % (0.0-10.0); Hemoglobin 12.3 g/dL (12.0-16.0); Mean Corpuscular HGB CONC 34.3 g/dL (32.0-36.0); Mean Corpuscular Hemoglobin 31.4 pg (27.0-31.0); Mean Corpuscular Volume 91.4 fL (78.0-98.0); Mean Platelet Volume 7.7 fL (7.4-10.4); Platelet Count 109 thou/uL (130-400); RBC Distribution Width 12.2 % (11.5-14.5); Red Blood Cell (RBC) Count 3.93 mill/uL (4.20-5.40); White Blood Cell (WBC) Count 4.6 thou/uL (4.8-10.8)
[2020-08-27 04:07] LABS: Anion Gap 11 mmol/L (10-20); BUN (Urea Nitrogen) 12 mg/dL (9.8-20.1); Calc. Creatinine Clearance 71 mL/min (70-130); Calcium 8.6 mg/dL (7.8-10.44); Carbon Dioxide 20 mmol/L (23-31); Cardiac Risk 3.9 (Less than 4.5); Chloride 114 mmol/L (98-107); Cholesterol 116 mg/dl (< 200 Desired); Estimated GFR-MDRD 79; Glucose 92 mg/dL (83-110); HDL Cholesterol 30 mg/dL (>60 Neg Risk); LDL Cholesterol, Calculated 56 mg/dL; Potassium 3.3 mmol/L (3.5-5.1); Sodium 142 mmol/L (136-145); Triglycerides 148 mg/dL (Less than 150)
[2020-08-27] MEDS: Sodium Chloride 0.9% 1,000 ML IV SCH (06:44)
[2020-08-27] MEDS ORDERED: Clopidogrel Bisulfate 75 MG TAB PO SCH (09:00)
[2020-08-27] MEDS ORDERED: FLU VACC QS2020-21(65YR UP)/PF 240 MCG/0.7 ML SYRINGE IM ONE (09:00)
[2020-08-27] MEDS ORDERED: Meclizine HCl 12.5 MG TAB PO SCH (09:00)
[2020-08-27] MEDS ORDERED: Aspirin 325 mg Enteric Coated Tablet PO SCH (09:00)
[2020-08-27 09:50] LABS: Bacteria/HPF None Seen HPF (None Seen); Bilirubin Negative (Negative); Blood, Urine Negative (Negative); Clarity Clear (Clear); Glucose, Urine (Dipstick) Normal (Negative); Ketone, Urine Negative (Negative); Leukocyte Negative Leu/uL (Negative); Nitrite Negative (Negative); Protein, Urine (Dipstick) Negative (Neg-Trace); RBC/HPF 0-3 HPF (0-3); Specific Gravity, Urine 1.033 (1.002-1.036); Squamous Epithelial 0-3 HPF (0-3); Urobilinogen Normal mg/dL (Less than 2); WBC/HPF 0-3 HPF (0-3)
--- NOTE | 2020-08-27 10:17 | CT ---
CTA of the head with IV contrast and 3-D reformatted imaging. CTA of the neck with IV contrast and 3-D reformatted imaging. INDICATION: 75-year-old female with reported history of a fall yesterday with fatigue and weakness wi th dizziness and possible posterior stroke COMPARISON: CT of the brain without contrast dated August 26, 2020, CTA of the head dated 04/06/2020, MRA of the brain dated March 11, [address] of the chest, abdomen and pelvis dated December 21, 2013 FINDINGS: CTA OF THE HEAD WITH CONTRAST: CTA OF THE BRAIN: Right ICA: Patent. Right MCA: Patent. Right ENRRIQUE: Patent. ACOM: Patent. Left ICA: Patent. Left MCA: Patent. Left ENRRIQUE: Patent. PCOMs: Patent. Vertebral arteries: There is mild narrowing involving the proximal intradural left vertebral artery which is stable to the most recent CTA evaluation of the brain. There is a thin septum-like filling defect involving the proximal basilar artery, just distal to the confluence of vertebral arteries, on image 153 series 2. This was likely present on the comparison examination from the April 06, 2020 as well as the MRA of the brain dated March 21, 2015. This may reflect a chronic dissection or small devel opmental septum. Basilar Artery: As above physical science aide: Patent. Incidentals: No definite abnormal enhancement is noted. There is generalized cerebral and cerebellar atrophy. The lime lenses have been replaced. CTA OF THE NECK WITH CONTRAST: Right CCA: Patent. Right ICA: Patent. Right Subclavian: Patent. Right Vertebral Artery: Patent. Left CCA: There is mild narrowing involving the origin of the left common carotid artery which is st able to the prior exam. Left ICA: Patent. Left Subclavian: Patent. Left Vertebral Artery: There is mild narrowing involving the origin of the left vertebral artery. Th e remaining cervical course is widely patent. Aerodigestive tract: Clear. Parotids/Submandibular/Thyroid glands: Normal. Lymph nodes: No pathologically enlarged lymph nodes. Lung Apices: There is a stable 4 mm pulmonary nodule the right upper lobe on image 27 series 2. Bones: No acute osseous abnormality. Incidentals: None. IMPRESSION: 1. No acute hemodynamically significant stenosis, occlusion or aneurysmal formation demonstrated. 2. 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 Transcribed Date/Time: 08/27/2020 10:17 AM
--- NOTE | 2020-08-27 10:29 | ULT ---
CAROTID ARTERIAL DOPPLER ULTRASOUND: DATE: 08/27/2020. COMPARISON: None. HISTORY: Dizziness, evaluate for carotid artery stenosis. TECHNIQUE: Multiplanar grayscale sonographic imaging of the arterial structures of the neck obtained with color flow and spectral analysis. FINDINGS: Antegrade blood flow noted within the carotid and vertebral system. Mild atherosclerotic plaque noted within the proximal ICA bilaterally, right greater than left. VESSEL PSV (CM/S) EDV (CM/S) Right CCA 93 10 Right ICA 99 27 Right ECA 88 6 Left CCA 108 12 Left ICA 104 21 Left ECA 56 6 The ICA/CCA ratio is 1.0 bilaterally. IMPRESSION: No hemodynamically significant stenosis involving the arterial structures of the neck on the basis of sonographic velocity criteria. Transcribed Date/Time: 08/27/2020 10:45 AM
--- NOTE | 2020-08-27 10:52 | MRI ---
MRI of thebrain without contrast: 08/27/2020 COMPARISON:04/08/2020 HISTORY:TIA versus stroke, vertigo TECHNIQUE: Multiplanar multisequence MR imaging of thebrain without contrast Findings:The axial gradient echo imaging demonstrates no evidence for intracranial hemorrhage. Multiple foci of increased T2 and FLAIR signal noted within the periventricular white matter, evidenc e of small vessel disease. Regional bone marrow signal intensity appears grossly unremarkable on the T1-weighted imaging. The diffusion weighted imaging demonstrates no evidence for acute infarction. Arterial flow voids at the axial level of the skull base appear grossly unremarkable on the T2-weighted imaging. Imaged paranasal sinuses and mastoid air cells grossly unremarkable. Stable mild cerebral volume loss. IMPRESSION:Small vessel disease. No MR evidence of intracranial hemorrhage or acute infarction.
[2020-08-27 12:13] VITALS: TEMP 97.5
--- NOTE | 2020-08-27 13:04 | CON ---
NEUROLOGY CONSULTATION DATE OF CONSULTATION: 08/27/2020 REASON FOR CONSULTATION: Dizziness, rule out posterior circulation stroke. HISTORY OF PRESENT ILLNESS: Ms. Sykes is a 75-year-old female with medical history significant for hypercholesterolemia, diabetes, CVA, gastroesophageal reflux disease, migraines, and chronic vertigo, presented to the emergency room with increased dizziness and generalized weakness. Per the patient, she had headache in the frontal region, off and on for the last two weeks, but it resolved on its own and then returned with photophobia. The patient denies nausea or vomiting associated with the headache, but she became extremely dizzy and decided to come to the emergency room for further evaluation. She does have history of chronic vertigo, which usually improves after taking meclizine; however, it did not help her and she was unable to walk and was falling backwards. She did fall on the floor for quite some time. The home health nurse came at around 9:30 on the morning of 08/26/2020, and called the EMS. Per the patient, she was able to crawl to the bathroom, but she is a poor historian. The patient's health nurse also reported that the patient has been confused lately and has a decrease in appetite for few days. In the emergency room, she was unable to stand on her own, so she was admitted for further evaluation. Head CT was done, which was negative for acute intracranial pathology. Lab work was negative. She had 500 mL of normal saline and two doses of meclizine, and her NIH score was 0 in the emergency room. REVIEW OF SYSTEMS: All 14 systems were reviewed and were negative except the pertinent positives and negatives mentioned in the HPI. HOME MEDICATIONS: 1. Trazodone. 2. Lisinopril. 3. Glipizide. 4. Sertraline. 5. Metoprolol. 6. Omeprazole. 7. Aspirin. 8. Amlodipine. 9. Divalproex. 10. Olmesartan. ALLERGIES: NO KNOWN DRUG ALLERGIES. PAST MEDICAL HISTORY: Hypertension, hyperlipidemia, CVA, migraine, vertigo, depression, GERD. PAST SURGICAL HISTORY: Cholecystectomy, CABG, cataract removal, hysterectomy. FAMILY HISTORY: No family history of stroke. SOCIAL HISTORY: The patient lives alone. She ambulates independently, and denies smoking, alcohol, or illegal drug use. PHYSICAL EXAMINATION: General Appearance: NAD, awake alert Eye: PERRL ENT: normocephalic atraumatic, moist mucosa Neck: supple Heart: RRR, no murmur, no gallops, no rubs, normal peripheral pulses Respiratory: CTAB, no wheezes, no rales, no ronchi Gastrointestinal: soft, non-tender, non-distended, normal bowel sounds Extremities: no edema Neurological: Mental status, the patient is alert and oriented to person, place, and time. Speech is clear. Cranial nerves 2 through 12 are intact. Motor, muscle tone and bulk are normal. Moving all 4 extremities equally and symmetrically. Sensory, withdraws to nailbed pressure bilaterally. Cerebellar, finger-nose testing intact. Gait deferred due to the patient's safety reason. DATA REVIEWED: I reviewed the labs, which were significant for hyperglycemia of 146. EKG showed normal sinus rhythm. CT scan did not reveal any acute intracranial pathology. 08/26/20 12:56 Lab results: WBC 4.5 thou/uL (4.8-10.8) L 08/26/20 12:56 Hgb 13.3 g/dL (12.0-16.0) 08/26/20 12:56 Hct 39.3 % (36.0-47.0) 08/26/20 12:56 MCV 90.4 fL (78.0-98.0) 08/26/20 12:56 Plt Count 107 thou/uL (130-400) L 08/26/20 12:56 Neutrophils % 54.9 % (42.0-75.0) 08/26/20 12:56 Sodium 140 mmol/L (136-145) 08/26/20 12:56 Potassium 3.6 mmol/L (3.5-5.1) 08/26/20 12:56 Chloride 109 mmol/L (98-107) H 08/26/20 12:56 Carbon Dioxide 25 mmol/L (23-31) 08/26/20 12:56 BUN 14 mg/dL (9.8-20.1) 08/26/20 12:56 Creatinine 1.03 mg/dL (0.6-1.1) 08/26/20 12:56 Glucose 146 mg/dL (83-110) H 08/26/20 12:56 Calcium 9.0 mg/dL (7.8-10.44) 08/26/20 12:56 Total Bilirubin 0.3 mg/dL (0.2-1.2) 08/26/20 12:56 AST 22 U/L (5-34) 08/26/20 12:56 ALT 17 U/L (8-55) 08/26/20 12:56 Alkaline Phosphatase 79 U/L (40-110) 08/26/20 12:56 Ammonia 25 umol/L (18-72) 08/26/20 12:56 Creatine Kinase 65 U/L (29-168) 08/26/20 12:56 Troponin I Less than 0.010 ng/mL (< 0.028) 08/26/20 12:56 Serum Total Protein 6.2 g/dL (6.0-8.3) 08/26/20 12:56 Albumin 3.8 g/dL (3.4-4.8) 08/26/20 12:56 Lipase 11 U/L (8-78) 08/26/20 12:56 Urine Ketones Negative mg/dL (Negative) 08/26/20 15:08 Urine Blood Negative (Negative) 08/26/20 15:08 Urine Nitrite Negative (Negative) 08/26/20 15:08 Ur Leukocyte Esterase Negative Jung/uL (Negative) 08/26/20 15:08 - EKG Interpretation EKG: SR 64 bpm, no ectopic beats - Radiology Interpretation CT scan - head Status: report reviewed by me Additional Comment: HEAD Head CT negative, without contrast, no bleed, no mass, no acute ischemic stroke, no acute changes, FINDINGS: The visualized paranasal sinuses and mastoid air cells are well aerated. There is no displaced calvarial fracture. No intracranial hemorrhage, midline shift, or mass effect. There is mild diffuse cerebral volume loss. There is mild periventricular hypodensity suggesting a degree of small vessel disease. IMPRESSION: No intracranial hemorrhage or displaced calvarial fracture. ASSESSMENT AND PLAN: Ms. Tami Sykes is a 75-year-old female, who was consulted for worsening vertigo, to rule out posterior circulation transient ischemic attack versus stroke. She has increased dizziness during the night and was started on scheduled doses of meclizine, which did help and she feels much better this morning and nausea is almost resolved. Differential diagnosis includes vertigo versus transient ischemic attack. MRI of the brain reviewed, which was negative for acute intracranial pathology. CT angiogram of the head reviewed, results noted. Carotid Dopplers did not reveal hemodynamically significant stenosis. Continue aspirin and Plavix for secondary stroke prevention. Strict control of blood pressure and blood glucose. Continue home medications. Telemetry to rule out arrhythmias. Neuro checks every 4 hours. Echocardiogram was done on April 07, 2020, which showed ejection fraction of 55% to 60%, no thrombus or PFO. No need to repeat the study. Continue medical management per primary team. PT/OT/Speech. Thank you for the consult. Job ID: [id number] JAYLYN
[2020-08-27 13:18] LABS: SARS-CoV-2 MS2 Positive; SARS-CoV-2 N Gene Negative; SARS-CoV-2 S Gene Negative; SARS-CoV-2 by NAA Not Detected (NotDetected); SARS-CoV-2 orf1ab Negative
[2020-08-27 16:28] VITALS: BP 169/82
--- NOTE | 2020-08-28 03:18 | DIS ---
DATE OF ADMISSION: 08/26/2020 DATE OF DISCHARGE: 08/27/2020 DISCHARGE DIAGNOSES: 1. Vestibular migraine. 2. Vertigo secondary to vestibular migraine. 3. History of cerebrovascular accident. 4. Diabetes mellitus type 2. 5. Hypertension. 6. Hypoglycemia. DISCHARGE MEDICATIONS: The patient will continue her home medications in addition to meclizine 25 mg orally twice daily as needed for dizziness or vertigo. HISTORY OF PRESENT ILLNESS AND HOSPITAL COURSE: The patient is a 75-year-old female with history of hypertension, diabetes mellitus, hyperlipidemia, and CVA who presented to the hospital with complaints of vertigo. The patient stated that her symptoms have been ongoing for a few months, but worsened over the last week. Her symptoms are intermittent and she is symptom free in between the episodes. The patient stated her symptoms were always associated with severe unilateral headache that is worse with light and better in a dark quiet place. She has been compliant with her medications including migraine prophylactic medications. She is also on topiramate and SSRI. The patient was admitted to the hospital to rule out CVA. This was ruled out as her MRI of the brain, CTA of the head and neck, and echocardiogram were all unremarkable. Her symptoms improved with meclizine. Job ID: [id number]
== END 2020-08-27 18:05 | disposition home or self-care (01) ==
LOC: ERS 12:19 → 2SE 15:15 → IMCU/EMU 08-27 00:24
PROVIDERS: ADMIT Internal Medicine; ATTEND Internal Medicine
DX: G43.809 Other migraine, not intractable, without status migrainosus (principal); R27.8 Other lack of coordination; E11.649 Type 2 diabetes mellitus with hypoglycemia without coma; I10 Essential (primary) hypertension; E78.00 Pure hypercholesterolemia, unspecified; E78.5 Hyperlipidemia, unspecified; K21.9 Gastro-esophageal reflux disease without esophagitis; F41.9 Anxiety disorder, unspecified; F32.9 Major depressive disorder, single episode, unspecified; N17.9 Acute kidney failure, unspecified; Z79.84 Long term (current) use of oral hypoglycemic drugs; Z79.82 Long term (current) use of aspirin; Z79.899 Other long term (current) drug therapy; Z86.73 Personal history of transient ischemic attack (TIA), and cerebral infarction without residual deficits; Z95.1 Presence of aortocoronary bypass graft; Z20.828 Contact with and (suspected) exposure to other viral communicable diseases; W18.30XA Fall on same level, unspecified, initial encounter; Y92.009 Unspecified place in unspecified non-institutional (private) residence as the place of occurrence of the external cause
CPT/HCPCS: 51701; 70450; 70496; 70498; 70551; 73030; 80048; 80053; 80061; 81001; 81003; 82140; 82550; 82962 ×2; 83690; 84484; 85025 ×2; 93005; 93880; 97139 ×3; 99285; G0378 ×3; U0003; 36415; 36416; 87635; Q9967

== ENCOUNTER 2021-11-22 15:30 | Inpatient (IN) | payer MEDICARE ==
[2021-11-22 17:37] LABS: #Lymphocytes 1.1 thou/uL (1.20-3.40); #Monocytes 0.7 thou/uL (0.11-0.59); #Neutrophils 8.2 thou/uL (1.40-6.50); %Eosinophils 0.1 % (0.0-10.0); %Lymphocytes 10.8 % (21.0-51.0); %Monocytes 6.8 % (0.0-10.0); %Neutrophils 82.2 % (42.0-75.0); Mean Corpuscular HGB CONC 34.3 g/dL (32.0-36.0); Mean Corpuscular Hemoglobin 31.3 pg (27.0-31.0); Mean Corpuscular Volume 91.1 fL (78.0-98.0); Mean Platelet Volume 7.7 fL (7.4-10.4); Platelet Count 98 thou/uL (130-400); RBC Distribution Width 12.1 % (11.5-14.5)
[2021-11-22 17:52] LABS: ALT (SGPT) 14 U/L (8-55); AST (SGOT) 20 U/L (5-34); Albumin 4.2 g/dL (3.4-4.8); Alkaline Phosphatase 63 U/L (40-110); Anion Gap 14 mmol/L (10-20); BUN (Urea Nitrogen) 18 mg/dL (9.8-20.1); Bilirubin, Total 0.9 mg/dL (0.2-1.2); CK (CPK) 71 U/L (29-168); Calc. Creatinine Clearance 0 mL/min (70-130); Calcium 10.1 mg/dL (7.8-10.44); Carbon Dioxide 27 mmol/L (23-31); Chloride 102 mmol/L (98-107); Globulin 3.2 g/dL (2.4-3.5); Glucose 127 mg/dL (83-110); Potassium 3.6 mmol/L (3.5-5.1); Protein, Total 7.4 g/dL (5.8-8.1); Sodium 139 mmol/L (136-145)
[2021-11-22 18:06] LABS: Bilirubin Negative (Negative); Blood, Urine Trace (Negative); Clarity Clear (Clear); Glucose, Urine (Dipstick) Normal (Negative); Ketone, Urine Trace mg/dL (Negative); Leukocyte Negative Leu/uL (Negative); Nitrite Negative (Negative); Protein, Urine (Dipstick) 10 mg/dL (Neg-Trace); RBC/HPF 0-3 HPF (0-3); Specific Gravity, Urine 1.018 (1.002-1.036); Squamous Epithelial 0-3 HPF (0-3); Urobilinogen Normal mg/dL (Less than 2); WBC/HPF 0-3 HPF (0-3); pH, Urine 7.5 (5.0-9.0)
[2021-11-22 18:07] LABS: Bacteria/HPF 1+ HPF (None Seen)
[2021-11-22 23:14] VITALS: BMI 25.4
[2021-11-22] MEDS ORDERED: Acetaminophen 325 MG TAB ONE (23:28)
[2021-11-23] MEDS ORDERED: Ondansetron PF 4 MG/2 ML Vial IVP PRN (00:03)
[2021-11-23] MEDS ORDERED: HYDROcodone/Acetaminophen 7.5/325 mg Tablet PO PRN (00:03)
[2021-11-23] MEDS ORDERED: Morphine 4 MG/ML VIAL SLOW IVP PRN (00:05)
[2021-11-23] MEDS ORDERED: Morphine 4 MG/ML VIAL SLOW IVP SCH (00:15)
[2021-11-23] MEDS ORDERED: Morphine 4 MG/ML VIAL ONE (03:29)
[2021-11-23] MEDS ORDERED: Amlodipine 5 MG TAB ONE (08:42)
[2021-11-23] MEDS ORDERED: Divalproex Sodium 250 MG (DR) TAB ONE (08:42)
[2021-11-23] MEDS ORDERED: Famotidine 20 MG TAB ONE (08:43)
[2021-11-23] MEDS ORDERED: Enoxaparin Sodium 30 MG/0.3 ML SYRINGE ONE (08:43)
[2021-11-23] MEDS ORDERED: Metoprolol Tartrate 50 MG TAB ONE ×2 (08:44)
[2021-11-23] MEDS ORDERED: Metoprolol Tartrate 25 MG TAB ONE (08:45)
[2021-11-23] MEDS ORDERED: Zinc Sulfate 220 MG CAP ONE (08:45)
[2021-11-23] MEDS ORDERED: Enoxaparin Sodium 30 MG/0.3 ML SYRINGE SC SCH (09:00)
[2021-11-23 09:29] LABS: #Eosinphils 0.1 thou/uL (0.0-0.7); #Lymphocytes 0.8 thou/uL (1.20-3.40); #Monocytes 0.4 thou/uL (0.11-0.59); #Neutrophils 4.8 thou/uL (1.40-6.50); %Basophils 0.1 % (0.0-1.0); %Eosinophils 2.3 % (0.0-10.0); %Lymphocytes 13.2 % (21.0-51.0); %Monocytes 6.8 % (0.0-10.0); %Neutrophils 77.5 % (42.0-75.0); Hemoglobin 13.6 g/dL (12.0-16.0); Mean Corpuscular Volume 91.3 fL (78.0-98.0); Mean Platelet Volume 7.5 fL (7.4-10.4); Platelet Count 76 thou/uL (130-400); RBC Distribution Width 12.1 % (11.5-14.5); Red Blood Cell (RBC) Count 4.39 mill/uL (4.20-5.40); White Blood Cell (WBC) Count 6.1 thou/uL (4.8-10.8)
[2021-11-23 09:45] LABS: Anion Gap 13 mmol/L (10-20); BUN (Urea Nitrogen) 19 mg/dL (9.8-20.1); Calc. Creatinine Clearance 50 mL/min (70-130); Calcium 9.3 mg/dL (7.8-10.44); Carbon Dioxide 24 mmol/L (23-31); Chloride 104 mmol/L (98-107); Glucose 227 mg/dL (83-110); Potassium 3.2 mmol/L (3.5-5.1); Sodium 138 mmol/L (136-145)
[2021-11-23] MEDS ORDERED: Potassium Chloride 20 MEQ TAB PO SCH (10:30)
[2021-11-23] MEDS: Amlodipine 5 MG TAB PO SCH ×2 (11:09→21:55)
[2021-11-23] MEDS: Famotidine 20 MG TAB PO SCH (11:09)
[2021-11-23] MEDS: Zinc Sulfate 220 MG CAP PO SCH (11:10)
[2021-11-23] MEDS: Metoprolol Tartrate 50 MG TAB PO SCH ×2 (11:10→21:55)
[2021-11-23] MEDS: Losartan 25 MG TAB PO SCH (11:10)
[2021-11-23] MEDS ORDERED: Potassium Chloride 20 MEQ TAB ONE (12:20)
[2021-11-23 13:46] LABS: SARS-CoV-2 PCR by NAA Not Detected (NotDetected)
[2021-11-23] MEDS ORDERED: hydrALAZINE 20 MG/ML VIAL ONE (16:56)
[2021-11-23] MEDS: hydrALAZINE 20 MG/ML VIAL SLOW IVP PRN (16:58)
[2021-11-24 05:16] LABS: Hemoglobin 14.4 g/dL (12.0-16.0); Mean Corpuscular Hemoglobin 31.2 pg (27.0-31.0); Mean Corpuscular Volume 91.6 fL (78.0-98.0); Platelet Count 89 thou/uL (130-400); RBC Distribution Width 12.2 % (11.5-14.5); Red Blood Cell (RBC) Count 4.61 mill/uL (4.20-5.40); White Blood Cell (WBC) Count 8.1 thou/uL (4.8-10.8)
[2021-11-24 05:36] LABS: Band 2 % (5-11); Eosinophils 2 % (0-10); Lymphocytes 20 % (21-51); MDiff Complete? YES; Monocytes 9 % (0-10); Neutrophil 65 % (42-75); Platelet Morphology Comment Appears Decreased; Reactive Lymphocytes 2 % (0-10)
[2021-11-24 05:38] LABS: Anion Gap 12 mmol/L (10-20); BUN (Urea Nitrogen) 12 mg/dL (9.8-20.1); Calc. Creatinine Clearance 60 mL/min (70-130); Calcium 9.2 mg/dL (7.8-10.44); Carbon Dioxide 22 mmol/L (23-31); Chloride 104 mmol/L (98-107); Glucose 150 mg/dL (83-110); Potassium 3.6 mmol/L (3.5-5.1); Sodium 134 mmol/L (136-145)
[2021-11-24] MEDS: Metoprolol Tartrate 50 MG TAB PO SCH ×2 (09:10→20:49)
[2021-11-24] MEDS: Amlodipine 5 MG TAB PO SCH ×2 (09:11→20:49)
[2021-11-24] MEDS: Famotidine 20 MG TAB PO SCH (09:11)
[2021-11-24] MEDS: Zinc Sulfate 220 MG CAP PO SCH (09:11)
[2021-11-24] MEDS: Losartan 25 MG TAB PO SCH (09:12)
[2021-11-24] MEDS ORDERED: FLU VACC QS2021-22(65YR UP)/PF 240 MCG/0.7 ML SYRINGE IM ONE (17:15)
[2021-11-25] MEDS: hydrALAZINE 20 MG/ML VIAL SLOW IVP PRN (05:13)
[2021-11-25 05:50] LABS: Anion Gap 15 mmol/L (10-20); BUN (Urea Nitrogen) 17 mg/dL (9.8-20.1); Calc. Creatinine Clearance 57 mL/min (70-130); Calcium 9.2 mg/dL (7.8-10.44); Carbon Dioxide 20 mmol/L (23-31); Chloride 106 mmol/L (98-107); Glucose 146 mg/dL (83-110); Potassium 3.7 mmol/L (3.5-5.1); Sodium 137 mmol/L (136-145)
[2021-11-25 05:53] LABS: #Basophils 0.1 thou/uL (0.0-0.2); #Eosinphils 0.3 thou/uL (0.0-0.7); #Lymphocytes 1.8 thou/uL (1.20-3.40); #Monocytes 0.7 thou/uL (0.11-0.59); #Neutrophils 3.7 thou/uL (1.40-6.50); %Basophils 0.8 % (0.0-1.0); %Eosinophils 4.6 % (0.0-10.0); %Lymphocytes 27.6 % (21.0-51.0); %Monocytes 10.7 % (0.0-10.0); %Neutrophils 56.4 % (42.0-75.0); Hemoglobin 13.4 g/dL (12.0-16.0); Mean Corpuscular HGB CONC 34.2 g/dL (32.0-36.0); Mean Corpuscular Hemoglobin 31.7 pg (27.0-31.0); Mean Corpuscular Volume 92.7 fL (78.0-98.0); Mean Platelet Volume 7.8 fL (7.4-10.4); Platelet Count 101 thou/uL (130-400); RBC Distribution Width 12.2 % (11.5-14.5); Red Blood Cell (RBC) Count 4.22 mill/uL (4.20-5.40); White Blood Cell (WBC) Count 6.5 thou/uL (4.8-10.8)
[2021-11-25] MEDS: Metoprolol Tartrate 50 MG TAB PO SCH ×2 (09:07→19:58)
[2021-11-25] MEDS: Amlodipine 5 MG TAB PO SCH ×2 (09:08→19:57)
[2021-11-25] MEDS: Losartan 25 MG TAB PO SCH (09:08)
[2021-11-25] MEDS: Famotidine 20 MG TAB PO SCH (09:09)
[2021-11-25] MEDS: Zinc Sulfate 220 MG CAP PO SCH (09:09)
[2021-11-25] MEDS: Diclofenac 1% 100 GM GEL TP SCH ×2 (18:04→19:55)
[2021-11-26 08:20] LABS: #Eosinphils 0.2 thou/uL (0.0-0.7); #Lymphocytes 1.9 thou/uL (1.20-3.40); #Monocytes 0.6 thou/uL (0.11-0.59); #Neutrophils 3.5 thou/uL (1.40-6.50); %Basophils 0.1 % (0.0-1.0); %Eosinophils 3.5 % (0.0-10.0); %Lymphocytes 30.8 % (21.0-51.0); %Monocytes 9.5 % (0.0-10.0); %Neutrophils 56.2 % (42.0-75.0); Hemoglobin 14.3 g/dL (12.0-16.0); Mean Corpuscular HGB CONC 33.9 g/dL (32.0-36.0); Mean Corpuscular Hemoglobin 31.5 pg (27.0-31.0); Mean Corpuscular Volume 92.8 fL (78.0-98.0); Mean Platelet Volume 8.2 fL (7.4-10.4); Platelet Count 118 thou/uL (130-400); RBC Distribution Width 12.3 % (11.5-14.5); Red Blood Cell (RBC) Count 4.55 mill/uL (4.20-5.40); White Blood Cell (WBC) Count 6.3 thou/uL (4.8-10.8)
[2021-11-26 08:43] LABS: Anion Gap 15 mmol/L (10-20); BUN (Urea Nitrogen) 20 mg/dL (9.8-20.1); Calc. Creatinine Clearance 53 mL/min (70-130); Calcium 9.7 mg/dL (7.8-10.44); Carbon Dioxide 23 mmol/L (23-31); Chloride 106 mmol/L (98-107); Glucose 148 mg/dL (83-110); Potassium 3.9 mmol/L (3.5-5.1); Sodium 140 mmol/L (136-145)
[2021-11-26] MEDS: Diclofenac 1% 100 GM GEL TP SCH ×4 (09:52→20:30)
[2021-11-26] MEDS: Losartan 25 MG TAB PO SCH (09:53)
[2021-11-26] MEDS: Amlodipine 5 MG TAB PO SCH ×2 (09:53→20:29)
[2021-11-26] MEDS: Zinc Sulfate 220 MG CAP PO SCH (09:53)
[2021-11-26] MEDS: Famotidine 20 MG TAB PO SCH (09:53)
[2021-11-26] MEDS: Metoprolol Tartrate 50 MG TAB PO SCH ×2 (09:53→20:29)
[2021-11-26 13:54] LABS: Hemoglobin A1c 5.6 % (4.0-6.0)
[2021-11-26] MEDS: hydrALAZINE 20 MG/ML VIAL SLOW IVP PRN (17:18)
[2021-11-26] MEDS: Acetaminophen 325 MG TAB PO PRN (17:18)
[2021-11-27] MEDS: Amlodipine 5 MG TAB PO SCH ×2 (08:45→20:56)
[2021-11-27] MEDS: Famotidine 20 MG TAB PO SCH (08:45)
[2021-11-27] MEDS: Zinc Sulfate 220 MG CAP PO SCH (08:45)
[2021-11-27] MEDS: Diclofenac 1% 100 GM GEL TP SCH ×4 (08:46→20:58)
[2021-11-27] MEDS: Metoprolol Tartrate 50 MG TAB PO SCH ×2 (08:46→20:56)
[2021-11-27] MEDS: Losartan 25 MG TAB PO SCH (08:46)
[2021-11-28] MEDS: Diclofenac 1% 100 GM GEL TP SCH ×4 (08:39→21:05)
[2021-11-28] MEDS: Famotidine 20 MG TAB PO SCH (08:48)
[2021-11-28] MEDS: Zinc Sulfate 220 MG CAP PO SCH (08:48)
[2021-11-28] MEDS: Metoprolol Tartrate 50 MG TAB PO SCH ×2 (08:49→21:04)
[2021-11-28] MEDS: Amlodipine 5 MG TAB PO SCH ×2 (08:49→21:04)
[2021-11-28] MEDS: Losartan 25 MG TAB PO SCH (08:49)
[2021-11-28] MEDS: Acetaminophen 325 MG TAB PO PRN (09:17)
[2021-11-28] MEDS: Zolpidem Tartrate 5 MG TAB PO PRN (21:06)
[2021-11-29] MEDS: Diclofenac 1% 100 GM GEL TP SCH ×4 (07:54→20:19)
[2021-11-29] MEDS: Acetaminophen 325 MG TAB PO PRN (07:55)
[2021-11-29] MEDS: Metoprolol Tartrate 50 MG TAB PO SCH ×2 (07:55→20:21)
[2021-11-29] MEDS: Famotidine 20 MG TAB PO SCH (07:55)
[2021-11-29] MEDS: Losartan 25 MG TAB PO SCH (07:56)
[2021-11-29] MEDS: Zinc Sulfate 220 MG CAP PO SCH (07:56)
[2021-11-29] MEDS: Amlodipine 5 MG TAB PO SCH ×2 (07:56→20:21)
[2021-11-29] MEDS ORDERED: Labetalol HCl 100 MG/20 ML VIAL ONE (19:30)
[2021-11-30] MEDS: Acetaminophen 325 MG TAB PO PRN (05:23)
[2021-11-30 06:32] LABS: #Eosinphils 0.1 thou/uL (0.0-0.7); #Lymphocytes 2.9 thou/uL (1.20-3.40); #Monocytes 0.6 thou/uL (0.11-0.59); #Neutrophils 3.2 thou/uL (1.40-6.50); %Basophils 0.4 % (0.0-1.0); %Lymphocytes 42.8 % (21.0-51.0); %Neutrophils 46.8 % (42.0-75.0); Hemoglobin 12.8 g/dL (12.0-16.0); Mean Corpuscular HGB CONC 33.9 g/dL (32.0-36.0); Mean Corpuscular Hemoglobin 31.6 pg (27.0-31.0); Mean Corpuscular Volume 93.4 fL (78.0-98.0); Mean Platelet Volume 8.2 fL (7.4-10.4); Platelet Count 137 thou/uL (130-400); Red Blood Cell (RBC) Count 4.05 mill/uL (4.20-5.40); White Blood Cell (WBC) Count 6.9 thou/uL (4.8-10.8)
[2021-11-30 06:53] LABS: Anion Gap 13 mmol/L (10-20); BUN (Urea Nitrogen) 23 mg/dL (9.8-20.1); Calc. Creatinine Clearance 53 mL/min (70-130); Calcium 9.1 mg/dL (7.8-10.44); Carbon Dioxide 22 mmol/L (23-31); Chloride 109 mmol/L (98-107); Glucose 109 mg/dL (83-110); Potassium 4.1 mmol/L (3.5-5.1); Sodium 140 mmol/L (136-145)
[2021-11-30] MEDS: Famotidine 20 MG TAB PO SCH (08:35)
[2021-11-30] MEDS: Amlodipine 5 MG TAB PO SCH ×2 (08:35→21:15)
[2021-11-30] MEDS: Zinc Sulfate 220 MG CAP PO SCH (08:35)
[2021-11-30] MEDS: Losartan 25 MG TAB PO SCH (08:35)
[2021-11-30] MEDS: Metoprolol Tartrate 50 MG TAB PO SCH ×2 (08:35→21:15)
[2021-11-30] MEDS: Diclofenac 1% 100 GM GEL TP SCH ×4 (08:37→21:16)
[2021-11-30] MEDS ORDERED: Losartan 25 MG TAB PO SCH (08:45)
[2021-11-30 10:11] LABS: SARS-CoV-2 PCR by NAA Not Detected (NotDetected)
[2021-11-30] MEDS: Zolpidem Tartrate 5 MG TAB PO PRN (21:15)
[2021-12-01] MEDS ORDERED: Losartan 25 MG TAB PO SCH (09:00)
[2021-12-01] MEDS: Famotidine 20 MG TAB PO SCH (09:13)
[2021-12-01] MEDS: Metoprolol Tartrate 50 MG TAB PO SCH (09:14)
[2021-12-01] MEDS: Zinc Sulfate 220 MG CAP PO SCH (09:14)
[2021-12-01] MEDS: Amlodipine 5 MG TAB PO SCH (09:14)
[2021-12-01] MEDS: Diclofenac 1% 100 GM GEL TP SCH ×2 (09:15→12:54)
[2021-12-01 15:58] VITALS: BP 146/70; TEMP 98
== END 2021-12-01 16:15 | DRG 948 ==
LOC: ERS 15:30 → ERHOLD 22:06 → SJJU 11-23 21:15 → OBSVTOIN 11-24 15:27
PROVIDERS: ADMIT Student in an Organized Health Care Education/Training Program; ATTEND Internal Medicine
DX: R53.1 Weakness (principal); I16.0 Hypertensive urgency; S80.01XA Contusion of right knee, initial encounter; Z20.822 Contact with and (suspected) exposure to COVID-19; Z66 Do not resuscitate; I10 Essential (primary) hypertension; I25.10 Atherosclerotic heart disease of native coronary artery without angina pectoris; G43.909 Migraine, unspecified, not intractable, without status migrainosus; K21.9 Gastro-esophageal reflux disease without esophagitis; F41.9 Anxiety disorder, unspecified; F32.A Depression, unspecified; Z96.651 Presence of right artificial knee joint; W18.30XA Fall on same level, unspecified, initial encounter; E11.65 Type 2 diabetes mellitus with hyperglycemia; D69.6 Thrombocytopenia, unspecified; E78.00 Pure hypercholesterolemia, unspecified; R29.6 Repeated falls; R00.1 Bradycardia, unspecified; E87.6 Hypokalemia; Z23 Encounter for immunization; Z86.73 Personal history of transient ischemic attack (TIA), and cerebral infarction without residual deficits; Z95.1 Presence of aortocoronary bypass graft; Z91.14 Patient's other noncompliance with medication regimen; Z79.899 Other long term (current) drug therapy; Z79.82 Long term (current) use of aspirin; Z90.49 Acquired absence of other specified parts of digestive tract
CPT/HCPCS: 36415; 51701; 70450; 72125; 72131; 72170; 80048; 80053; 81003; 81015; 82550; 83036; 84484; 85007; 85025; 85027; 87086; 93005; 94760; 96374; 96375; G0378; J0360; J1650; J2270; J2405; U0003; U0005